=== PATIENT | male | born 1940 | race Caucasian/White ===

== ENCOUNTER 2016-08-14 10:36 | Emergency (ER) | payer OTHER, MEDICARE ==
[~2016-08-14] VITALS: Ht 177.8 cm; Wt 89.8 kg
[~2016-08-14 10:36] MED LIST: VICODIN 300 MG-1 TAB PO
[2016-08-14] MEDS ORDERED: GEMCITABINE HCL1 GM (11:22)
[2016-08-14] MEDS ORDERED: CISPLATIN1 MG/1 ML (11:22)
[2016-08-14] MEDS ORDERED: ATORVASTATIN CA10 M1 PO (11:23)
[2016-08-14] MEDS ORDERED: NORVASC2.5 M1 PO (11:23)
[2016-08-14] MEDS ORDERED: MUCINEX DM ER1 EACH PO (11:23)
--- NOTE | 2016-08-14 11:24 | ED DYSPNEA/ASTHMA COMPLAINT ---
History of Present Illness General Chief Complaint: Dyspnea (COPD, CHF, Other) Stated Complaint: CONGESTION,CP,WHEEZING,SOB X 4 DAYS Source: patient, family, old records Exam Limitations: no limitations Vital Signs & Intake/Output Vital Signs & Intake/Output Vital Signs Date Time Temp Pulse Resp B/P Pulse O2 O2 Flow FiO2 Ox Delivery Rate 08/14 1423 98.9 88 16 150/74 94 Room Air 08/14 1302 93 08/14 1245 99.0 92 18 144/75 93 Room Air 08/14 1205 92 08/14 1049 99.7 98 24 159/83 96 Room Air ED Intake and Output 08/15 0000 08/14 1200 Intake Total 240 Output Total Balance 240 Intake, Oral 240 Patient 198 lb Weight Reconcile Medications Amlodipine (Norvasc) 2.5 MG TABLET 1 TAB PO DAILY HTN (Reported) Atorvastatin Calcium 10 MG TABLET 1 TAB PO DAILY HPL (Reported) Azithromycin (Zithromax) 250 MG TABLET 1 DP PO AD bronchitis 2 the first day followed by 1 for days 2-5 Cisplatin (Unknown Strength) VIAL (Unknown Dose) WEEKLY CHEMO (Reported) Gemcitabine HCl (Unknown Strength) VIAL (Unknown Dose) WEEKLY CHEMO (Reported ) Guaifenesin/Dextromethorphan (Mucinex Dm ER 1,200-60 MG Tab) 1,200 MG-60 MG TBMP.12HR 1 TAB PO BID COUGH (Reported) HYDROCODONE/ACETAMINOPHEN (Vicodin 5-300 MG Tablet) 1 TAB TAB 1 TAB PO Q4-6HR PRN PAIN Methylprednisolone. (Medrol) 4 MG TAB.DS.PK 1 DP PO AD bronchitis 6 on day 1 then reduce by one tablet daily until gone Triage Note: PT TO ED STATING "I THINK I HAVE PNEUMONIA". C/O PRODUCTIVE COUGH AND CHEST PAIN X 4 DAYS. PT IS ON CHEMOTHERAPY CURRENTLY. RA SATS 96%. EKG DONE. TEMP 99.7. Triage Nurses Notes Reviewed? yes Onset: Abrupt Duration: day(s): (4), constant Timing: recent history Severity: moderate Activities at Onset: none Modifying Factors: Improves With: rest. Associated Symptoms: cough HPI: 76-year-old male presents emergency room with history of prostate bladder CA just beginning chemotherapy last week complaining of a productive cough of clear to yellowish sputum associated with intermittent shortness of breath and chest pain with coughing that all began 4 days ago. The patient does not smoke no history of lung disease in the past no history of asthma. He denies fever chills, diaphoresis no abdominal pain nausea vomiting or diarrhea. He has been Using [id number] decongestants without improvement. There are no modifying factors or associated symptoms otherwise. He is due for his next round of chemotherapy tomorrow morning (MONISHA REY) Allergies Coded Allergies: NO KNOWN ALLERGIES (08/14/16) (LANG NEVAREZ,SAGRARIO) Past History Travel History Traveled to [place] past 21 day No Medical History Any Pertinent Medical History? see below for history Renal: MELANIA POUCH Cancer(s): bladder cancer, prostate cancer Surgical History Surgical History: non-contributory Psychosocial History What is your primary language Bengali Tobacco Use: Quit >30 days ago ETOH Use: denies use Illicit Drug Use: denies illicit drug use Family History Hx Contributory? No (MONISHA REY) Review of Systems Review of Systems Constitutional: Reports: see HPI. All Other Systems: Reviewed and Negative Comments Review of systems: See HPI, All other systems negative. Constitutional, no chills no fever, no malaise HEENT: No visual changes no sore throat no congestion, no ear pain Cardiovascular: No chest pain , no palpitation , no orthopnea no ankle swelling Skin, no jaundice no rashes, no change in skin Respiratory: No dyspnea cough sputum no hemoptysis GI: No nausea no vomiting, no diarrhea, : No dysuria Muscle skeletal: No joint pain, no back pain, no neck pain, Neurologic: No numbness no headache Psych: No stress Heme/endocrine: No bruising no bleeding Immunology: No lymphadenopathy (MONISHA REY) Physical Exam Physical Exam General Appearance: well developed/nourished, alert, awake Respiratory: chest non-tender, rhonchi, wheezing Comments: Well-developed well-nourished person in no acute distress HEENT: Normal EENT exam; PERRL, EOMI, HEAD is atraumatic. moist mucous membranes. Pharynx is within normal limits no erythema no exudate Neck: Supple, no lymphadenopathy, normal range of motion Back: Nontender, no CVA tenderness. Full range of motion Cardiovascular: Regular rate and rhythms no murmurs rubs or gallops, normal JVP Respiratory: Chest nontender.There were no bony deformities, no asymmetry. No respiratory distress. Patient speaking in full complete sentences. The bilateral crackles and rhonchi wheezing bilateral lung mc Abdomen: Soft, nontender nondistended, no appreciable organomegaly. Normal bowel sounds. No rebound/guarding, No ascites. Extremity: No edema, full range of motion of extremities Neuro: Alert oriented x3, motor sensory normal, There were no obvious focal neurologic abnormalities. Skin: No appreciable rash on exposed skin, skin is warm and dry. Psych: Mood and affect is normal, memory and judgment is normal. Core Measures ACS in differential dx? Yes Severe Sepsis Present: No Septic Shock Present: No (JENNY HOYOS,MONISHA) Progress Differential Diagnosis: asthma, AMI, bronchitis, costochondritis, CHF, COPD, musculoskeletal pain, pericarditis, pulmonary embolism, pneumonia, pneumothorax, unstable angina Plan of Care: Orders Procedure Date/time Status Add-on Test (ER Only) 08/14 1203 Active LACTIC ACID 08/14 1153 Complete BLOOD CULTURE 08/14 1129 Active TROPONIN LEVEL 08/14 1129 Complete COMPREHENSIVE METABOLIC PANEL 08/14 1129 Complete CBC WITHOUT DIFFERENTIAL 08/14 1129 Complete EKG 08/14 1037 Active Laboratory Tests 08/14/16 1153: Anion Gap 13, Estimated GFR 59 L, BUN/Creatinine Ratio 17.5, Glucose 126 H, Lactic Acid 1.1, Calcium 9.1, Total Bilirubin 1.0, AST 111 H, ALT 81 H, Alkaline Phosphatase 224 H, Troponin I < 0.01, Total Protein 7.2, Albumin 4.0, Globulin 3.2, Albumin/Globulin Ratio 1.3, CBC w Diff NO MAN DIFF REQ, RBC 4.86, MCV 88.0, MCH 30.7, RDW 13.0, MPV 7.3 L, Gran % 81.7 H, Lymphocytes % 10.6 L, Monocytes % 7.0, Eosinophils % 0.3, Basophils % 0.4, Absolute Granulocytes 4.6, Absolute Lymphocytes 0.6 L, Absolute Monocytes 0.4, Absolute Eosinophils 0, Absolute Basophils 0, PUBS MCHC 34.9 Microbiology 08/14 1210 BLOOD: Blood Culture - RECD 08/14 1153 BLOOD: Blood Culture - RECD Labs ordered old records reviewed DuoNeb ordered. Case was discussed with Dr. Hernandez who evaluated the patient and agrees with plan I discussed with the patient and his family at length all of his lab results and x-ray findings. Patient still sounds congested repeat DuoNeb ordered discussed with him that I believe premature discharge would BE medically harmful and the patient should be admitted to the hospital for IV steroids breathing treatments. IV antibiotics which the patient is reluctant against does not want to stay discussed with the harm of leaving prematurely. I spoke with the patient's on-call oncologist Dr. foster covering for dr ro- he advise given the 2 medications the patient is on (cisplatin and gemcitabine) that it is okay and safe to send the patient home with by mouth steroids and azithromycin. Advised outpatient follow-up with Dr. Ro tomorrow as he is scheduled to receive another chemotherapy infusion patient is ambulatory around the emergency room 93% room air feeling well. Patient wants to be discharged he will return at anytime sooner with any concerns. I discussed with the patient at length all of their results, need for close follow up with their primary care physician. This week. I answered all of their questions, they feel comfortable with the plan and follow-up care. I discussed the medications that they will receive with the patient. I gave them signs and symptoms that could indicate an adverse reaction. I have advised them to limit their activities until they can see how they respond to the medication. (JENNY HOYOS,MONISHA) Diagnostic Imaging: Viewed by Me: Radiology Read. Discussed w/RAD: Radiology Read. Radiology Impression: PATIENT: ELIEZER STAHL PRESENT AGE: 76 PATIENT ACCOUNT NO: [id number] : 42 LOCATION: [facility] ORDERING PHYSICIAN: MONISHA HOYOS SERVICE DATE: 08/14/16 EXAM TYPE: RAD - XRY- CHEST XRAY, PA AND LATERAL EXAMINATION: XR CHEST CLINICAL INFORMATION: Cough. Dyspnea. Rule out pneumonia. COMPARISON: CT chest 06/07/2016, chest x-rays of , 02/18/2013. TECHNIQUE: PA and lateral views of the chest were obtained. FINDINGS: The lungs are normally and symmetrically expanded. The costophrenic sulci are not completely included in the field of view. There are bands of linear densities in the lingula likely representing atelectasis. No focal consolidation. No pleural effusions, pulmonary edema or pneumothorax. The cardiomediastinal silhouette is stable and normal. Mild degenerative changes at the bilateral acromioclavicular joints. Multilevel mild degenerative changes are noted in the spine. The visualized upper abdomen is unremarkable. IMPRESSION: The linear bands of opacity in the lingula are felt to represent subsegmental atelectasis. No additional focal airspace opacities. Consider follow up chest x- rays in 4-6 weeks. DICTATED BY: ELISE GILL MD DATE/TIME DICTATED:08/14/161207 STRATEGY PLANNING CONSULTANT:ALEJANDRO DATE/TIME TRANSCRIBED:08/14/161207 CONFIDENTIAL, DO NOT COPY WITHOUT APPROPRIATE AUTHORIZATION. <Electronically signed in Other Vendor System> SIGNED BY: BRIDGET NEVAREZ,ELISE 08/14/16 1236 Initial ED EKG: sinus tach at 100, no acute ST segment changes lad Prior EKG: unchanged (11/2012) Rhythm Strip: normal sinus rhythm (MONISHA REY) Departure Departure Time of Disposition: 1311 Disposition: HOME OR SELF CARE Condition: Stable Clinical Impression Primary Impression: Bronchitis Secondary Impressions: Transaminitis Referrals: NESSA ALVAREZ DO (PCP/Family) Additional Instructions: Follow-up with Dr. Ro tomorrow morning to see if they want to change your appointment for tomorrow. Medrol Dosepak, azithromycin as directed. Return anytime sooner if he develop worsening of her symptoms despite medication shortness of breath fever or chills These prescriptions were sent to her pharmacy Departure Forms: Customer Survey General Discharge Information Prescriptions: Current Visit Scripts Azithromycin (Zithromax) 1 DP PO AD #6 TAB 2 the first day followed by 1 for days 2-5 Methylprednisolone. (Medrol) 1 DP PO AD #1 DP 6 on day 1 then reduce by one tablet daily until gone (MONISHA REY) PA/TIMBER FELLER Co-Sign Statement Statement: ED Attending supervision documentation- [X] I saw and evaluated the patient. I have also reviewed all the pertinent lab results and diagnostic results. I agree with the findings and the plan of care as documented in the PA's/TIMBER FELLER's documentation. [X] I have reviewed the ED Record and agree with the PA's/TIMBER FELLER's documentation. [] Additions or exceptions (if any) to the PAs/TIMBER FELLER's note and plan are summarized below: [] (LANG NEVAREZ,SAGRARIO) Critical Care Note Critical Care Note Critical Care Time: non-applicable (JENNY HOYOSMONISHA)
[2016-08-14 12:11] LABS: ABSOLUTE BASOPHIL COUNT 0 /CUMM (0.0-0.2); ABSOLUTE EOSINOPHIL COUNT 0 /CUMM (0.0-0.7); ABSOLUTE GRANULOCYTE CT 4.6 /CUMM (1.4-6.5); ABSOLUTE LYMPH COUNT 0.6 /CUMM (1.2-3.4); ABSOLUTE MONOCYTE COUNT 0.4 /CUMM (0.10-0.60); BASOPHIL % 0.4 % (0.0-2.0); EOSINOPHIL % 0.3 % (0-5); GRANULOCYTE % 81.7 % (42.2-75.2); HEMATOCRIT 42.8 % (42-52); MEAN CORPUSCULAR HGB 30.7 PG (27.0-31.0); MEAN CORPUSCULAR HGB CONC 34.9 G/DL (33.0-37.0); MEAN PLATELET VOLUME 7.3 FL (7.4-10.4); PLATELET COUNT 181 /CUMM (130-400); RED BLOOD CELL CT 4.86 /CUMM (4.70-6.10); WHITE BLOOD CELL COUNT 5.6 /CUMM (4.8-10.8)
--- NOTE | 2016-08-14 12:36 | RADIOLOGY REPORT ---
EXAMINATION: XR CHEST CLINICAL INFORMATION: Cough. Dyspnea. Rule out pneumonia. COMPARISON: CT chest 06/07/2016, chest x-rays of 11/11/2013, 02/18/2013. TECHNIQUE: PA and lateral views of the chest were obtained. FINDINGS: The lungs are normally and symmetrically expanded. The costophrenic sulci are not completely included in the field of view. There are bands of linear densities in the lingula likely representing atelectasis. No focal consolidation. No pleural effusions, pulmonary edema or pneumothorax. The cardiomediastinal silhouette is stable and normal. Mild degenerative changes at the bilateral acromioclavicular joints. Multilevel mild degenerative changes are noted in the spine. The visualized upper abdomen is unremarkable. IMPRESSION: The linear bands of opacity in the lingula are felt to represent subsegmental atelectasis. No additional focal airspace opacities. Consider follow up chest x-rays in 4-6 weeks.
[2016-08-14] MEDS ORDERED: MEDROL4 M2 PO (13:13)
[2016-08-14] MEDS ORDERED: ZITHROMAX250 M2 PO (13:13)
[2016-08-14 14:23] VITALS: BP 150/74
== END 2016-08-14 14:26 ==
LOC: ERH 10:36
PROVIDERS: Physician Assistant Medical
DX: J40 Bronchitis, not specified as acute or chronic (principal); R74.0 Nonspecific elevation of levels of transaminase and lactic acid dehydrogenase [LDH]; Z87.891 Personal history of nicotine dependence; R07.9 Chest pain, unspecified
CPT/HCPCS: 1263; 87040; 93005; 93010; 96374; 96375; J2930

== ENCOUNTER 2016-10-12 05:28 | Emergency (ER) | payer OTHER, MEDICARE ==
[~2016-10-12] VITALS: Ht 175.3 cm; Wt 77.6 kg
[~2016-10-12 05:28] MED LIST changes: +ATORVASTATIN CA10 M1 PO; +CISPLATIN1 MG/1 ML; +GEMCITABINE HCL1 GM; +MEDROL4 M2 PO; +MUCINEX DM ER1 EACH PO; +NORVASC2.5 M1 PO; +ZITHROMAX250 M2 PO
--- NOTE | 2016-10-12 05:46 | ED GI/GU/ABDOMINAL COMPLAINT ---
History of Present Illness General Chief Complaint: Male Genitourinary Problems Stated Complaint: NEEDS TO BE CATHETERIZED Source: EMS, Exam Limitations: clinical condition Vital Signs & Intake/Output Vital Signs & Intake/Output ED Intake and Output 10/13 0000 10/12 1200 Intake Total Output Total 300 Balance -300 Output, Urine 300 Patient 171 lb Weight Allergies Coded Allergies: NO KNOWN ALLERGIES (08/14/16) Reconcile Medications Amlodipine (Norvasc) 2.5 MG TABLET 1 TAB PO DAILY HTN (Reported) Atorvastatin Calcium 10 MG TABLET 1 TAB PO DAILY HPL (Reported) Ciprofloxacin HCl (Cipro) 500 MG TABLET 1 TAB PO BID UTI Oxycodone HCl 5 MG TABLET 10 MG PO Q4P PRN PAIN (Reported) Prednisone 20 MG TABLET 30 MG PO TID STEROID (Reported) Prochlorperazine Maleate 10 MG TABLET 10 MG PO Q6-PRN PRN NAUSEA (Reported) Sennosides (Senokot) 8.6 MG TABLET 1 TAB PO DAILY STOOL SOFTENER (Reported) Tramadol HCl 50 MG TABLET 50 MG PO Q6-PRN PRN PAIN (Reported) Triage Note: PT BIBA FROM HOME C/O URINARY RETENTION. PER PT PT HAS MELANIA POUCH DUE TO BLADDER CANCER AND IS CATHETERIZED EVERY 5-6 HOURS. REPORTS NOT BEING ABLE TO CATHETERIZE HIM AT 2 AM WHEN HE WAS DUE. REPORTS PT LAST URINE OUTPUT AT 8 PM LAST. PT NOW C/O OF ABDOMINAL PAIN DUE TO URINARY RETENTION. BELLY SOFT AND DISTENDED. Triage Nurses Notes Reviewed? 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 According to the the pouch is catheterized every 5-6 hours. Tonight she was unable to pass the catheter and he was too weak to stand so EMS was called. No fever or chills. No nausea/vomiting. Urine has been dark secondary to elevated LFT's. Patient follow up with Dr. Claire in [place] for oncology. Patient reports some abdominal pain secondary to distention and urinary retention. Past History Travel History Traveled to [place] past 21 day No Medical History Any Pertinent Medical History? see below for history Renal: MELANIA POUCH Cancer(s): bladder cancer, prostate cancer Surgical History Surgical History: non-contributory Psychosocial History What is your primary language Mauritian Family History Hx Contributory? No Review of Systems Review of Systems Constitutional: Reports: weakness. Denies: chills, fever. EENTM: Reports: no symptoms. Respiratory: Denies: cough, sputum production. Cardiovascular: Denies: chest pain, palpitations. GI: Reports: abdominal pain, bloating. Denies: nausea. Genitourinary: Reports: see HPI (RETENTION), pain. Musculoskeletal: Reports: no symptoms. Skin: Reports: no symptoms. Neurological/Psychological: Reports: no symptoms. Hematologic/Endocrine: Denies: bruising, bleeding, polyuria, polydipsia. Immunologic/Allergic: Denies: splenectomy. All Other Systems: Reviewed and Negative Physical Exam Physical Exam General Appearance: alert, awake, moderate distress, thin Head: atraumatic, normal appearance Eyes: Bilateral: PERRL, other (ICTERIC). Respiratory: normal breath sounds, chest non-tender Cardiovascular: tachycardia Peripheral Pulses: 2+ radial (R), 2+ radial (L) Gastrointestinal: soft, distention, tenderness, RLQ MELANIA POUCH Male Genitals: normal genitalia, URETHRAL TIP CLOSED Extremities: normal range of motion Neurologic/Psych: no motor/sensory deficits, awake, alert, oriented x 3 Skin: jaundice Core Measures ACS in differential dx? No Severe Sepsis Present: No Septic Shock Present: No Progress Differential Diagnosis: urinary retention, UTI/pyelo Plan of Care: Orders Procedure Date/time Status Straight Cath 10/12 0544 Active CULTURE,URINE 10/12 0544 Active URINALYSIS 10/12 0544 Complete Current Medications Sig/Marisela Start time Last Medication Dose Stop Time Status Admin Ciprofloxacin 500 MG ONCE ONE 10/12 0645 UNVr (Cipro) 10/12 0646 Laboratory Tests 10/12/16 0600: Urine Color YEL, Urine Clarity CLDY H, Urine pH 7.0, Ur Specific [place] 1.015, Urine Protein 100 H, Urine Ketones NEG, Urine Nitrite NEG, Urine Bilirubin POS@ ICTO H, Urine Urobilinogen 4.0 H, Ur Leukocyte Esterase MOD H, Ur Microscopic SEDIMENT EXAMINED, Urine RBC 3-5, Urine WBC 25-50 H, Ur Epithelial Cells FEW, Urine Bacteria PACKD H, Granular Casts 1-3 H, Urine Mucus MOD H, Urine Hemoglobin SMALL H, Urine Glucose NEG Microbiology 10/12 0600 URINE ROUT: Urine Culture - RECD 320 cc icteric urine removed with straight cath. UA/UCULTURE SENT. VISIBLE SEDIMENT IN URINE. (LANG NEVAREZ,SAGRARIO) Initial ED EKG: none Departure Departure Time of Disposition: 633 Disposition: HOME OR SELF CARE Condition: Stable Clinical Impression Primary Impression: Urinary retention Referrals: NESSA ALVAREZ DO (PCP/Family) Additional Instructions: Take the cipro as directed and follow up with your doctor in the office. A urine culture is pending in the lab. Return to the ER for any changing or worsening symptoms. Departure Forms: Customer Survey General Discharge Information Prescriptions: Current Visit Scripts Ciprofloxacin HCl (Cipro) 1 TAB PO BID #19 TAB
[2016-10-12] MEDS ORDERED: OXYCODONE HCL5 M1 PO (05:47)
[2016-10-12] MEDS ORDERED: PROCHLORPERAZIN10 MG PO ×2 (05:48→12:11)
[2016-10-12] MEDS ORDERED: PREDNISONE20 M1 PO (05:48)
[2016-10-12] MEDS ORDERED: CIPRO500 M1 PO (06:35)
[2016-10-12 07:13] VITALS: BP 94/61
[2016-10-12] MEDS ORDERED: TRAMADOL HCL50 M1 PO (12:10)
[2016-10-12] MEDS ORDERED: SENOKOT8.6 M2 PO (12:12)
== END 2016-10-12 07:45 ==
LOC: ERH 05:28
DX: R33.9 Retention of urine, unspecified (principal)
CPT/HCPCS: 81001; 87086

== ENCOUNTER 2016-10-12 10:23 | Inpatient (IN) | payer OTHER, MEDICARE ==
[~2016-10-12] VITALS: Ht 175.3 cm; Wt 77.6 kg
[~2016-10-12 10:23] MED LIST changes: +CIPRO500 M1 PO; +OXYCODONE HCL5 M1 PO; +PREDNISONE20 M1 PO; +PROCHLORPERAZIN10 MG PO
--- NOTE | 2016-10-12 10:46 | NUR ---
76 Y/O FEMALE BIBA FROM HOME; C/O GENERAL WEAKNESS AND SOB SINCE LAST NIGHT. WAS EVAL'D OVERNIGHT IN ED AND D/YUNG THIS MORNING, DX UTI. SCRIPT FOR CIPRO GIVEN BY STATES SHE HAS NOT FILLED SCRIPT YET. PER EMS, PT WAS FOUND WITH B/P 70'S SYSTOLIC. IV EST AND NORMAL SALINE INFUSING ON ARRIVAL WITH B/P 82/55. PT ALERT JAUNDICE. C/O GENERAL FATIGUE. 2ND IV EST BY ALEXIS BAE. 2ND LITER INFUSING. AWAITING EVAL WITH FAMILY PRESENT
--- NOTE | 2016-10-12 10:46 | NUR ---
DR SANDS INTO EVAL
--- NOTE | 2016-10-12 10:49 | NUR ---
ORDERS PLACED, OK'D BY DR SANDS. DR SANDS AT BEDSIDE FOR EVAL
[2016-10-12 10:55] LABS: HEMATOCRIT 36.4 % (42-52); MEAN CORPUSCULAR HGB 29.1 PG (27.0-31.0); MEAN CORPUSCULAR HGB CONC 31.5 G/DL (33.0-37.0); MEAN CORPUSCULAR VOLUME 92.6 FL (80.0-94.0); MEAN PLATELET VOLUME 9.5 FL (7.4-10.4); PLATELET COUNT 296 /CUMM (130-400); RBC DISTRIBUTION WIDTH 16.7 % (11.5-14.5); RED BLOOD CELL CT 3.93 /CUMM (4.70-6.10); WHITE BLOOD CELL COUNT 29.9 /CUMM (4.8-10.8)
--- NOTE | 2016-10-12 10:55 | ED AMS/SEIZURE/WEAK/DIZZY ---
History of Present Illness General Chief Complaint: General Adult Stated Complaint: WEAKNESS Source: patient, family () Exam Limitations: poor historian Vital Signs & Intake/Output Vital Signs & Intake/Output ED Intake and Output 10/14 0000 10/13 1200 Intake Total 1320 2047 Output Total 600 250 Balance 720 1797 Intake, IV 1320 7 Intake, Oral 0 0 Number 0 Bowel Movements Output, Urine 600 250 Patient 171 lb Weight Allergies Coded Allergies: NO KNOWN ALLERGIES (08/14/16) Reconcile Medications Amlodipine (Norvasc) 2.5 MG TABLET 1 TAB PO DAILY HTN (Reported) Atorvastatin Calcium 10 MG TABLET 1 TAB PO DAILY HPL (Reported) Ciprofloxacin HCl (Cipro) 500 MG TABLET 1 TAB PO BID UTI Oxycodone HCl 5 MG TABLET 10 MG PO Q4P PRN PAIN (Reported) Prednisone 20 MG TABLET 30 MG PO TID STEROID (Reported) Prochlorperazine Maleate 10 MG TABLET 10 MG PO Q6-PRN PRN NAUSEA (Reported) Sennosides (Senokot) 8.6 MG TABLET 1 TAB PO DAILY STOOL SOFTENER (Reported) Tramadol HCl 50 MG TABLET 50 MG PO Q6-PRN PRN PAIN (Reported) Triage Note: 76 Y/O FEMALE BIBA FROM HOME; C/O GENERAL WEAKNESS AND SOB SINCE LAST NIGHT. WAS EVAL'D OVERNIGHT IN ED AND D/YUNG THIS MORNING, DX UTI. SCRIPT FOR CIPRO GIVEN BY STATES SHE HAS NOT FILLED SCRIPT YET. PER EMS, PT WAS FOUND WITH B/P 70'S SYSTOLIC. IV EST AND NORMAL SALINE INFUSING ON ARRIVAL WITH B/P 82/55. PT ALERT JAUNDICE. C/O GENERAL FATIGUE. 2ND IV EST BY ALEXIS BAE. 2ND LITER INFUSING. AWAITING EVAL WITH FAMILY PRESENT Triage Nurses Notes Reviewed? yes HPI: Patient presents for evaluation of worsening generalized weakness that began 3-4 days ago. Patient was evaluated in the emergency earlier today and was diagnosed began treatment for a urinary tract infection. Since then he has become increasingly weak and unsteady on his feet. Patient himself is a poor historian and is unable to provide substantial history. History obtained via his . She feels the symptoms are becoming worse and severe and that he is increasingly unable to manage his ADLs. Past History Travel History Traveled to [place] past 21 day No Medical History Any Pertinent Medical History? see below for history Neurological: NONE EENT: NONE Cardiovascular: hypertension, HIGH CHOLESTEROL Respiratory: NONE Gastrointestinal: NONE Hepatic: NONE Renal: MELANIA POUCH Musculoskeletal: NONE Psychiatric: NONE Endocrine: NONE Blood Disorders: NONE Cancer(s): bladder cancer, prostate cancer, LIVER CANCER DENTAL OFFICE ASSISTANT/Reproductive: NONE Surgical History Surgical History: non-contributory Psychosocial History What is your primary language Georgian Tobacco Use: Quit >30 days ago Family History Hx Contributory? No Review of Systems Review of Systems Constitutional: Reports: weakness. EENTM: Reports: no symptoms. Respiratory: Reports: no symptoms. Cardiovascular: Reports: no symptoms. GI: Reports: no symptoms. Genitourinary: Reports: no symptoms. Musculoskeletal: Reports: no symptoms. Skin: Reports: no symptoms. Neurological/Psychological: Reports: no symptoms. Hematologic/Endocrine: Reports: no symptoms. Immunologic/Allergic: Reports: no symptoms. All Other Systems: Reviewed and Negative Physical Exam Physical Exam General Appearance: see below Comments: Gen.: Well-nourished, well-developed, no acute respiratory distress. Head: Normocephalic, atraumatic. Eyes: Normal inspection bilaterally Ears: Normal inspection bilaterally Nose: Normal inspection Throat/mouth : Moist mucosa Neck: Supple, full range of motion, no goiter Heart: Rapid but otherwise Regular rate and rhythm, no murmurs rubs or gallops Lungs: Clear to auscultation bilaterally with normal air entry Chest: Nontender Back: Normal range of motion Abdomen: Soft, right upper quadrant abdominal tenderness consistent with patient 's history of liver cancer, mildly distended and tympanitic in the upper quadrants, normal bowel sounds Extremities: Normal range of motion grossly, equal radial pulses, no cyanosis clubbing or edema Neurologic: Cranial nerves grossly intact, speech is clear Skin: warm and dry Psychiatric: Calm, cooperative, no apparent delusions or hallucinations Core Measures ACS in differential dx? No CVA/TIA Diagnosis: No Severe Sepsis Present: Yes Septic Shock Present: Yes Progress Differential Diagnosis: urosepsis Plan of Care: Orders Procedure Date/time Status Patient Data 10/12 1547 Active LACTIC ACID 10/12 1358 Complete Admit to inpatient 10/[address] ABD & PELVIS W/O IV CONTRAS 10/12 1221 Active LACTIC ACID 10/12 1058 Complete CULTURE,URINE 10/12 1041 Active BLOOD CULTURE 10/12 1041 Active URINALYSIS 10/12 1041 Complete COMPREHENSIVE METABOLIC PANEL 10/12 1041 Complete CBC WITHOUT DIFFERENTIAL 10/12 1041 Complete Intake & Output 10/12 1034 Active Laboratory Tests 10/12/16 1523: Lactic Acid 4.1 H 10/12/16 1302: Urinalysis LIGHT H, Urine Color RESHMA, Urine Clarity CLDY H, Urine pH 6.5, Ur Specific Dyer 1.020, Urine Protein 100 H, Urine Ketones NEG, Urine Nitrite POS H, Urine Bilirubin POS@ICTO H, Urine Urobilinogen 4.0 H, Ur Leukocyte Esterase MOD H, Ur Microscopic SEDIMENT EXAMINED, Urine RBC 15-25 H, Urine WBC 50-75 H, Ur Epithelial Cells RARE, Urine Crystals 1+ CA OX H, Urine Bacteria PACKD H, Hyaline Casts RARE H, Granular Casts RARE H, Urine Mucus PACKD H, Micro UA Comment , Urine Hemoglobin MOD H, Urine Glucose NEG 10/12/16 1044: Lactic Acid 6.8 H 10/12/16 1044: Anion Gap 22 H, Estimated GFR 16 L, BUN/Creatinine Ratio 31.3 H, Glucose 139 H, Calcium 9.5, Total Bilirubin 7.5 H, AST 1115 H, ALT 587 H, Alkaline Phosphatase 2282 H, Total Protein 5.9 L, Albumin 2.5 L, Globulin 3.4, Albumin /Globulin Ratio 0.7 L, CBC w Diff MAN DIFF ORDERED, RBC 3.93 L, MCV 92.6, MCH 29.1, RDW 16.7 H, MPV 9.5, Segmented Neutrophils 88 H, Band Neutrophils 6 H, Monocytes 5, Myelocytes 1 H, Nucleated RBCs 3 H, Platelet Estimate ADEQUATE, Hypochromic-Microcytic 1+, Anisocytosis 1+, PUBS MCHC 31.5 L Microbiology 10/12 1302 URINE ROUT: Urine Culture - RECD 10/12 1125 BLOOD: Blood Culture - RECD 10/12 1044 BLOOD: Blood Culture - RECD Diagnostic Imaging: Discussed w/RAD: Radiology Read. CXR Impression: PATIENT: ELIEZER STAHL PRESENT AGE: 76 PATIENT ACCOUNT NO: [id number] : 42 LOCATION: [facility] ORDERING PHYSICIAN: MIKALA SANDS MD SERVICE DATE: 10/12/16-1040 EXAM TYPE: RAD - XRY-PORTABLE CHEST XRAY EXAMINATION: XR PORTABLE CHEST CLINICAL INFORMATION: Fever COMPARISON : 08/14/2016 TECHNIQUE: Portable AP view of the chest was obtained. FINDINGS: Lung volumes are low. The previously noted platelike opacity in the left lower lung has resolved. No consolidation, pulmonary edema, pleural effusion, or pneumothorax is evident. There are degenerative changes of the spine without evidence of acute osseous abnormality. IMPRESSION: Low lung volumes without acute abnormality. DICTATED BY: ADRIANNA NULL MD DATE/TIME DICTATED:10/12/161130 BICYCLE II ASSEMBLER:ALEJANDRO DATE/TIME TRANSCRIBED:10/12/161130 CONFIDENTIAL, DO NOT COPY WITHOUT APPROPRIATE AUTHORIZATION. <Electronically signed in Other Vendor System> SIGNED BY: ADRIANNA NULL MD 10/12/161134 Initial ED EKG: SINUS TACHY WITH RATE OF 100, LVH Comments: 10/12/2016 12:21:21 PM patient's case discussed with Dr. Saenz who is covering for Dr. Perea. Patient to be admitted to [facility] unless blood pressure fails to respond to IV fluid boluses. 10/12/2016 1:19:30 PM patient's blood pressure remains low. I feel that he would be better served in the intensive care unit initially. I'm awaiting a callback from Dr. Slade. 10/12/2016 3:38:55 PM patient's case discussed with Dr. Slade. He was given additional fluids with normalization of his blood pressure. His case was then discussed with Dr. Yuen for possible general medical admission. Dr. Perea however felt uncomfortable taking the patient on [facility]. I have discussed the case with Dr. Slade once again and the patient has been accepted to her service to the ICU. 10/12/2016 4:25:13 PM with reevaluation the patient's peripheral pulses are easily palpable, his color looks good, capillary refill of fingers is less than 2 seconds. He remains awake alert and conversant. His blood pressure remains normal. Departure Departure Disposition: STILL A PATIENT Condition: Stable Clinical Impression Primary Impression: Septic shock Secondary Impressions: Acute renal failure Qualifiers: Acute renal failure type: unspecified Qualified Code: N17.9 - Acute kidney failure, unspecified Volume depletion Referrals: NESSA ALVAREZ DO (PCP/Family) Departure Forms: Customer Survey General Discharge Information Admission Note Spoke With: ENIO SAENZ MD Documentation of Exam: Documentation of any treatments & extenuating circumstances including Concerns Regarding Discharge (functional status, medication knowledge or non-compliance, living conditions, etc.) that warrant an admission rather than observation: Patient's clinical presentation is consistent with septic shock given his recent diagnosis of urinary tract infection. He is now at extremely high risk of overwhelming sepsis, septic shock and . His advanced age, history of liver cancer with bone metastases and current treatment with immunosuppressive therapy increases the risk substantially. He cannot be treated safely as an outpatient requires hospitalization and aggressive management with IV fluid boluses and intravenous antibiotics. His vital signs should be checked frequently along with serial physical examinations. Blood and urine culture results should be followed and treatment adjusted accordingly. Patient's prognosis at this point is guarded and I feel he will require multiple day hospitalization. Critical Care Note Critical Care Note Critical Care Time: 75-104 min
--- NOTE | 2016-10-12 11:32 | NUR ---
CRITICAL TEST RESULTS [id number] ELIEZER STAHL TESTS AND RESULTS: BUN 119, SODIUM 156 Results received and read back by: SABINA COLLINS Results received date and time: 10/12/16 1132 The following provider was notified of the results, and read the results back: DR SANDS Notified date and time: 10/12/16 at 1132
--- NOTE | 2016-10-12 11:35 | RADIOLOGY REPORT ---
EXAMINATION: XR PORTABLE CHEST CLINICAL INFORMATION: Fever COMPARISON: 08/14/2016 TECHNIQUE: Portable AP view of the chest was obtained. FINDINGS: Lung volumes are low. The previously noted platelike opacity in the left lower lung has resolved. No consolidation, pulmonary edema, pleural effusion, or pneumothorax is evident. There are degenerative changes of the spine without evidence of acute osseous abnormality. IMPRESSION: Low lung volumes without acute abnormality.
--- NOTE | 2016-10-12 11:47 | NUR ---
PTS BP 74/42 AT THIS TIME. THIRD LITER INFUSING AT THIS TIME. AWARE
--- NOTE | 2016-10-12 11:56 | NUR ---
IV ROCEPIHN INFUSING PER ORDER AT THIS TIME. BP 87/50 AT THIS TIME. SECOND AND THIRD LITERS INFUISNG PER ORDER AT THIS TIME.
[2016-10-12] MEDS ORDERED: TRAMADOL HCL50 M1 PO (12:10)
[2016-10-12] MEDS ORDERED: PROCHLORPERAZIN10 MG PO (12:11)
[2016-10-12] MEDS ORDERED: SENOKOT8.6 M2 PO (12:12)
--- NOTE | 2016-10-12 12:26 | NUR ---
TAKEN TO CT SCAN VIA STRETCHER
--- NOTE | 2016-10-12 13:00 | NUR ---
TALKED TO LAB ABOUT ORDER FOR LACTIC ACID, LACTIC WAS DRAWN THIS AM WITH OTHER BLOOD WORK AND SENT BUT NEVER RESULTED DUE TO ORDER NOT BEING ADDED ON. LAB WILL RUN LACTIC ACID NOW.
--- NOTE | 2016-10-12 13:07 | NUR ---
PT STRIAGHT CATH'D VIA MELANIA POUCH AT THIS TIME. OUTPUT 100CC DARK URINE WITH SEDIMENT NOTED. SPECIMEN SENT TO LAB
--- NOTE | 2016-10-12 13:11 | NUR ---
MD AT BEDSIDE TO DISCUSS RESULTS AND PLAN OF CARE
--- NOTE | 2016-10-12 13:11 | NUR ---
PT PROVIDED WITH ORANGE JUICE PER REQUEST AT THIS TIME, PER MD IT WAS OK
--- NOTE | 2016-10-12 14:23 | NUR ---
Emergency Dept UC Admit Note: To be admitted to [facility] by DR MESSER with UROSEPSIS as the diagnosis, to 104-01 location. Nursing Service Mechanic and admitting notified 10/12/16 at 1405
--- NOTE | 2016-10-12 14:52 | NUR ---
PTS BP 100/56. PT REQUESTING PAIN MEDICATION AT THIS TIME. AWARE.
--- NOTE | 2016-10-12 15:00 | History & Physical ---
General Information and HPI Allergies/Medications Allergies: Coded Allergies: NO KNOWN ALLERGIES (08/14/16) Home Med list Amlodipine (Norvasc) 2.5 MG TABLET 1 TAB PO DAILY HTN (Reported) Atorvastatin Calcium 10 MG TABLET 1 TAB PO DAILY HPL (Reported) Ciprofloxacin HCl (Cipro) 500 MG TABLET 1 TAB PO BID UTI Oxycodone HCl 5 MG TABLET 10 MG PO Q4P PRN PAIN (Reported) Prednisone 20 MG TABLET 30 MG PO TID STEROID (Reported) Prochlorperazine Maleate 10 MG TABLET 10 MG PO Q6-PRN PRN NAUSEA (Reported) Sennosides (Senokot) 8.6 MG TABLET 1 TAB PO DAILY STOOL SOFTENER (Reported) Tramadol HCl 50 MG TABLET 50 MG PO Q6-PRN PRN PAIN (Reported) Past History Travel History Traveled to [place] past 21 day No Medical History Neurological: NONE EENT: NONE Cardiovascular: hypertension, HIGH CHOLESTEROL Respiratory: NONE Gastrointestinal: NONE Hepatic: NONE Renal: MELANIA POUCH Musculoskeletal: NONE Psychiatric: NONE Endocrine: NONE Blood Disorders: NONE Cancer(s): bladder cancer, prostate cancer, LIVER CANCER APPLICATION CONSULTANT/Reproductive: NONE Surgical History Surgical History: non-contributory Core Measures/Miscellaneous Cerebrovascular Accident CVA/TIA Diagnosis: No Severe Sepsis Severe Sepsis Present: Yes Septic Shock Septic Shock Present: Yes
--- NOTE | 2016-10-12 15:19 | NUR ---
CRITICAL TEST RESULTS [id number] ELIEZER STAHL TESTS AND RESULTS: LACTIC 6.8 Results received and read back by: NGHIA AGUILERA Results received date and time: 10/12/16 1519 The following provider was notified of the results, and read the results back: DR SANDS Notified date and time: 10/12/16 at 1520
--- NOTE | 2016-10-12 15:55 | NUR ---
CRITICAL TEST RESULTS [id number] ELIEZER STAHL TESTS AND RESULTS: LACTIC ACID 4.1 Results received and read back by: SABINA COLLINS Results received date and time: 10/12/16 1555 The following provider was notified of the results, and read the results back: DR SANDS Notified date and time: 10/12/16 at 1559
--- NOTE | 2016-10-12 16:02 | History & Physical ---
See Addendum [facility] 10[facility]12[facility]16 1602: General Information and HPI MD Statement: I have seen and personally examined MARIBETHDONALD and documented this H&P. The patient is a 76 year old M who presented with a patient stated chief complaint of weakness Source of Information: patient History of Present Illness: This is a 76-year-old male with past medical history of hypertension, hyperlipidemia, urothelial bladder cancer stage IV status post bladder resection and placement of [place] pouch, currently under palliative radiotherapy, prostate cancer, liver cancer presents with weakness and abdominal pain. Patient is a poor historian, he states that he has been having abdominal pain for a while now but recently noticed increase in intensity of the pain, he has been feeling weak, has been having low appetite not eating or drinking well. Denies any fever or chills, denies any changes in amount or color of urine, no hematuria, on a daily basis he intermittently catheterizing himself every 4 hours which . Denies any nausea, vomiting, chest pain, palpitation, changes in bowel movements, any recent sick contacts, any recent travels. He is currently receiving palliative radiotherapy for his stage IV bladder cancer. Allergies/Medications Allergies: Coded Allergies: NO KNOWN ALLERGIES (08/14/16) Home Med list Amlodipine (Norvasc) 2.5 MG TABLET 1 TAB PO DAILY HTN (Reported) Atorvastatin Calcium 10 MG TABLET 1 TAB PO DAILY HPL (Reported) Ciprofloxacin HCl (Cipro) 500 MG TABLET 1 TAB PO BID UTI Oxycodone HCl 5 MG TABLET 10 MG PO Q4P PRN PAIN (Reported) Prednisone 20 MG TABLET 30 MG PO TID STEROID (Reported) Prochlorperazine Maleate 10 MG TABLET 10 MG PO Q6-PRN PRN NAUSEA (Reported) Sennosides (Senokot) 8.6 MG TABLET 1 TAB PO DAILY STOOL SOFTENER (Reported) Tramadol HCl 50 MG TABLET 50 MG PO Q6-PRN PRN PAIN (Reported) Compliance With Home Meds: UNKNOWN Past History Travel History Traveled to [place] past 21 day No Medical History Neurological: NONE EENT: NONE Cardiovascular: hypertension, HIGH CHOLESTEROL Respiratory: NONE Gastrointestinal: NONE Hepatic: NONE Renal: MELANIA POUCH Musculoskeletal: NONE Psychiatric: NONE Endocrine: NONE Blood Disorders: NONE Cancer(s): bladder cancer, prostate cancer, 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 Home Who Do You Live With? spouse Primary Language: Citizen Of [place] Smoking Status: Current Everyday Smoker ETOH Use: denies use Illicit Drug Use: denies illicit drug use Functional Ability ADLs Needs Assist: dressing, eating, toileting, bathing. IADLs Needs Assist: shopping, housework, finances, food prep, telephone, transportation, medication admin. Review of Systems Review of Systems Constitutional: Reports: see HPI. Exam & Diagnostic Data Last 24 Hrs of Vital Signs/I&O Vital Signs Date Time Temp Pulse Resp B/P Pulse O2 O2 Flow FiO2 Ox Delivery Rate 10/12 1711 97.2 103 18 103/55 95 Room Air 10/12 1707 97.0 100 20 117/59 10/12 1612 98.6 101 18 112/62 95 Room Air 10/12 1452 98.6 101 18 100/56 98 Room Air 10/12 1324 103 20 100/56 96 Room Air 10/12 1217 92 18 90/55 94 Room Air 10/12 1159 98.8 106 18 87/50 95 Room Air 10/12 1149 110 22 74/42 93 10/12 1117 95 18 95/49 95 Room Air 10/12 1038 97.3 114 18 82/55 94 Room Air 10/12 1030 94 Room Air Intake & Output 10/12 1600 10/12 0800 10/12 0000 Intake Total 200 Output Total Balance 200 Intake, IV 200 Patient 76.657 kg Weight Physical Exam General Appearance Alert, No Acute Distress Cardiovascular Regular Rate, Normal S1, Normal S2, No Murmurs Lungs Normal Air Movement, left lower lobe coarse breath sounds Abdomen Normal Bowel Sounds, distended, tender in RLQ Extremities No Clubbing, No Cyanosis, No Edema Last 24 Hrs of Labs/[place]: Laboratory Tests 10/12/16 1706: Anion Gap 19 H, Estimated GFR 18 L, Glucose 166 H, Lactic Acid 4.3 H, Calcium 8.7, Phosphorus 6.3 H, Magnesium 2.9 H, Total Bilirubin 6.9 H, AST 1382 H, ALT 602 H, Albumin 2.2 L 10/12/16 1523: Lactic Acid 4.1 H 10/12/16 1302: Urinalysis LIGHT H, Urine Color RESHMA, Urine Clarity CLDY H, Urine pH 6.5, Ur Specific [place] 1.020, Urine Protein 100 H, Urine Ketones NEG, Urine Nitrite POS H, Urine Bilirubin POS@ICTO H, Urine Urobilinogen 4.0 H, Ur Leukocyte Esterase MOD H, Ur Microscopic SEDIMENT EXAMINED, Urine RBC 15-25 H, Urine WBC 50-75 H, Ur Epithelial Cells RARE, Urine Crystals 1+ CA OX H, Urine Bacteria PACKD H, Hyaline Casts RARE H, Granular Casts RARE H, Urine Mucus PACKD H, Micro UA Comment , Urine Hemoglobin MOD H, Urine Glucose NEG 10/12/16 1044: Lactic Acid 6.8 H 10/12/16 1044: Anion Gap 22 H, Estimated GFR 16 L, BUN/Creatinine Ratio 31.3 H, Glucose 139 H, Calcium 9.5, Total Bilirubin 7.5 H, AST 1115 H, ALT 587 H, Alkaline Phosphatase 2282 H, Total Protein 5.9 L, Albumin 2.5 L, Globulin 3.4, Albumin /Globulin Ratio 0.7 L, CBC w Diff MAN DIFF ORDERED, RBC 3.93 L, MCV 92.6, MCH 29.1, RDW 16.7 H, MPV 9.5, Segmented Neutrophils 88 H, Band Neutrophils 6 H, Monocytes 5, Myelocytes 1 H, Nucleated RBCs 3 H, Platelet Estimate ADEQUATE, Hypochromic-Microcytic 1+, Anisocytosis 1+, PUBS MCHC 31.5 L Microbiology 10/12 1835 UPPER RESP: Surveillance Culture - ORD 10/12 1835 GI: Surveillance Culture - ORD 10/12 1302 URINE ROUT: Urine Culture - RECD 10/12 1125 BLOOD: Blood Culture - RECD 10/12 1044 BLOOD: Blood Culture - RECD Assessment/Plan Assessment: This is a 76-year-old male with past medical history of hypertension, hyperlipidemia, urothelial bladder cancer stage IV status post bladder resection and placement of [place] pouch, currently under palliative radiotherapy, prostate cancer, liver cancer presents with weakness and abdominal pain. Vitals upon presentation temperature 97.3, pulse 114, blood pressure 82/55, pulse ox 94 on room air Pertinent labs wBC 29.9 , H&H 11.5 and 36.4, platelets 296, sodium 156, potassium 5.9, creatinine 2.8, BUN 1119, total bilirubin 7.5, AST 1115 home ALT 587, alkaline phosphatase 2282, lactic acid 6.8, urinalysis leukoesterase positive and nitrate positive, WBC 50-75, Abdominopelvic CT showed: IMPRESSION: Multiple well-defined hypodense liver lesions suggestive of metastatic disease with mild enlargement. On the previous exam, there was diffuse hepatic steatosis which appears unchanged. The lesions were not seen on old study. Status post cystectomy with diverting ureterostomy into an ileal conduit extending to the right lower quadrant as ileostomy. No hydronephrosis seen in the kidneys. Bilateral renal lesions and moderate bilateral perinephric stranding is stable. Small bilateral pulmonary nodules. The left inferior major fissure nodule is new. Right lower lobe 4 mm nodule has grown to 7 mm nodule size. Recommend CT chest correlation. We'll admit the patient to ICU and monitor for the following conditions. Sepsis likely urological in origin: Insetting of fever, high white count, hypotension. IV hydration with lactated Ringer's at 150 mL per hour. Vitron lactic acid initial 6.8>> 4.1 Patient started on Ceftriaxone, will follow blood and urine cultures We'll monitor repeat labs Abdominal pain/transaminitis: AST 1115 home ALT 587, alkaline phosphatase 2282 upon presentation, patient states that the abdominal pain has been going on for some time now, he is currently getting palliative radiation for stage IV bladder cancer which has metastasis as mentioned in the CT scan report above. Acute kidney injury: Creatinine normal upon presentation to 3.8 from baseline of 1.4-3 days ago, likely secondary to dehydration, CT scan has ruled out any obstructive uropathy or abscess. Nephrology has been consulted follow-up recommendations. Hypernatremia: Sodium level on presentation 156, likely secondary to dehydration. Patient received normal saline in ER, ICU bundle has been repeated the follow-up. Hyperkalemia: Level upon presentation 5.8, will monitor closely. History of bladder cancer status post [place] pouch: Patient currently receiving palliative radiotherapy and chemotherapy for stage IV-year-old female bladder cancer. Will notify the oncology services. DVT prophylaxis: Heparin subcutaneous Patient is full code. As Ranked By This Provider Problem List: 1. Acute renal failure Qualifiers Acute renal failure type: unspecified Qualified Code: N17.9 - Acute kidney failure, unspecified 2. Transaminitis 3. Sepsis Core Measures/Miscellaneous Acute Coronary Syndrome ACS Diagnosis: No Cerebrovascular Accident CVA/TIA Diagnosis: No Congestive Heart Failure CHF Diagnosis: No Venous Thromboembolism VTE Risk Factors: Acute medical illness, Age > 40, Smoking No [facility] VTE prophylaxis d/t: No contraindications No VTE Pharm Prophylaxis d/t: No contraindications VTE Diagnosis: No VTE Type: NONE VTE Confirmed by (Test): NONE Severe Sepsis Severe Sepsis Present: Yes BC x2: Yes Lactic Acid x2: Yes IV ABX Broad Spectrum: Yes NS/LR Started: Yes Septic Shock Septic Shock Present: Yes BC x2: Yes Lactic Acid: Yes IV ABX Broad Spectrum: Yes Focused Exam Completed: Yes NS/LR 30ml/kg w/in 3hrs: Yes IV Vasopressors started: No Miscellaneous Documentation Attending Case Discussed With: Ant GARNER MD Primary Care Physician: NESSA ALVAREZ DO Level of Patient Care: Critical Care (CRI) Ant GARNER MD 10/12/16 1709: Attending MD Review Statement Attending Statement Attending MD Statement: examined this patient, discuss w/resident/PA/CHANNEL SALES DIRECTOR, agreed w/resident/PA/CHANNEL SALES DIRECTOR, discussed with family, reviewed EMR data (avail), reviewed images, amended to note Attending Assessment/Plan: I have personally seen and examined the patient, and agree with the resident's assessment and plan as above. Briefly, the patient is a 76-year-old male with a complex history including liver cancer, prostate cancer, bladder cancer status post [place] pouch placement, hypertension, and hyperlipidemia. The patient is on a self-catheterization protocol every few hours. The patient recently underwent radiation therapy to the right sacrum a few weeks ago for bone metastases. He also had palliative radiation to the right clavicle. He has also been undergoing chemotherapy, noting he follows with Dr. Claire. The patient was brought into the emergency department after a brief period of unconsciousness. The patient is a very poor historian and does not contribute details to the history. There is no report of fever, chills, nausea, vomiting, shortness of breath or chest pain. The patient was evaluated and found to be hypotensive which did respond to IV fluid hydration. He was further evaluated and found to have evidence of urinary tract infection with a positive UA. His weight blood cell count was 29,000. The patient was in acute renal failure with a creatinine of 3.8 he has an anion gap metabolic acidosis with an increased lactic acid of 4.1. He is complaining of right upper quadrant abdominal discomfort noting that he had a CT scan that showed extensive liver mets, but no evidence of free air, abscess or clear source of infection. The patient was cultured and started on IV ceftriaxone and Flagyl. Impression: 1. Sepsis of urologic origin. 2. Right upper quadrant pain likely secondary to diffuse liver metastases. 3. Acute kidney injury. 4. Transaminitis likely secondary to metastatic liver disease and septic shock. 5. Hypernatremia secondary to dehydration. 6. Hyperkalemia. 7. Bladder cancer, status post recent palliative radiation. The patient remains on chemotherapy. Plan: * Continue IVF hydration. Monitor BP closely. TLC and pressors if MAP is < 65 mmHg. * Strict I&Os. Continue straight cath protocol. * Repeat labs ordered, will need to follow up results and adjust therapy as necessary. * Check labs every 4-6 hours. Monitor lactic acid, coags, troponin, CBC, and ICU bundle. * Replete electrolytes as necessary. * Check an ABG. * We will continue empiric IV antibiotics pending culture results. * Avoid rapid correction of serum sodium. * Nephrology consult called for MARAH. * Oncology consult called for ongoing follow up. * NPO for now. * DVT prophylaxis. * Continue to monitor closely in the critical care unit. * The patient is full code. TEODORA OWEN 10/12/16 1713: Core Measures/Miscellaneous Miscellaneous Documentation Patient sees these Specialists Navigating Officer Resident Review Statement Resident Statement: examined this patient, discussed with events intern, agreed with events intern, discussed with family, reviewed EMR data (avail), discussed with nursing , discussed with case mgmt, reviewed images, amended to note Other Findings: 76 year-old gentleman was brought in by ambulance after he was found, reportedly , unconscious by his . Patient has a significant past medical history of liver cancer, prostate cancer, hypertension, hyperlipidemia, and bladder cancer status post surgical the created urinary pouch ([place] pouch). He is on self- catheterization protocol every 1 or 2 hours. Patient is a poor historian and does not remember the details of why he was brought into the hospital. According to patient he has been at his normal state of health for the past few days, he denies any preceding fever, chills, nausea, vomiting, change in urine characteristics. His baseline patient reports an intermittent mild localized right upper quadrant abdominal pain, which happens on a daily basis and tends to resolve after few minutes, however patient currently reports increasing right upper quadrant abdominal pain with severity of 9 out of 10 without radiation. Patient lives with his . He reports decrease appetite which is not new for the patient. ROS: Tiredness and fatigue and right upper quadrant abdominal pain. Vital signs: 98.6/101/18/100/56/98 Physical exam: G alert and oriented x3, not in acute distress; HEET: dry mucous membranes, - JVD; Heart: S1 S2 no murmur; Lungs: decreased air movement, Abd: well healed mid abdominal scar of th bladder recostruction, RUQ abdominal pain and tenderness, w /o gaurding,- rebound, RLQ: catheterization site ( no drainage, no tenderness)) Extremity: warm, no mottling, no cyanosis, MAIL CENSOR< 3 sec, Pertinent data: Lactic acid 4.1 UA: positive nitrates, WBC 50-75, WBC 29.9 and 6, platelet count 296, Sodium 156 potassium 5.9 chloride 118, bicarbonate 16, BUN 119, creatinine 3.8( in 2012 was 0.9 and three days ago 10/09 Cr 1.4). AG 22 AST 1000 115, ALT 587, alkaline phosphatase 2282 Troponin less than 0.01 ECG: SOFA 11 Assessments 76-year-old w/ hx of cancer was admitted for sepsis. Active problems #1 Sepsis with a urinary origin w/ sofa score of 11 * Admit to ICU * Continue IV hydration with Ringer's lactate- Max 6 lit; MAP > 65 and urinary out put >0.5 ml/kg/h * Ceftriaxone 2000 mg IV daily * Flagyl 500 mg IV every 8 * No urinary culture results of results * Trend lactic acid; is to decrease lactic acid 20% per hour #2 transaminitis upper quadrant tenderness: In the setting of liver shock due to sepsis or, considerably related to metastatic liver disease, which is evident in CT scan from August [address] scan, which showed diffuse hepatic steatosis which appears unchanged. * Oncologist Dr. Cunningham was informed; he will see the patient tomorrow * Trending LFT ; may elevated possible GI consult #3 MARAH: In the setting of sepsis (end organ damage), or obstructive uropathy. Pelvic CT scan did not report any evidence of obstruction and hydronephrosis. * continue IV hydration with Ringer's lactate * repeat labs in the a.m. * Nephrology consult was placed-they will see the patient tomorrow #4 hypernatremia: possibly related to combination of decreased by mouth intake. Free water deficit 3677 mL. Received 4 L of normal saline and currently receiving another 1000 ML of Ringer lactate. * Continue IV hydration with Ringer's lactate * Goal is to decrease sodium 6-8 mEq every 24 hours * Tabs every 4h if it was overcorrected, we might replace the Na to prevent osmotic damage #5 Hyperkalemia and anion gap metabolic acidosis: Primary metabolic acidosis 2/2 to LA w/ respiratory compensation. * correcting acidos with hydration and IV Abx for infection * No need for treatement of High K, since its mostly transcellular shift and tend to resolve after correction of acidosis * Calcium gluconate 1 gr slow infusion #[address] scan findings * pulmonary nodules and liver Dior, unchanged compare to Aug scan #7 Unconfirmed Hx of chronic steroid use; Currently maintaining BP. * Please assess the patient; if was not maintaining BP give stress dose of streoid 100 mg IV solucortef * Check Am cortisol FC Mild pain pathway- tylenol and opioids
--- NOTE | 2016-10-12 16:12 | NUR ---
PT BP 112/62 AT THIS TIME. STATES PAIN IS BETTER AT THIS TIME, PT OFFERS NO COMPLANTS AT THIS TIME. HOUSE STAFF AT BEDSIDE FOR EVAL AT THIS TIME.
--- NOTE | 2016-10-12 17:03 | Admission Certification ---
Admission Certification Certification Statement - As attending physician, I certify that at the time of - admission, based on clinical presentation, severity of - symptoms, need for further diagnostic testing and - therapeutic interventions, and risk of adverse outcomes - without in-hospital treatment, in my clinical assessment, - this patient requires an acute hospital stay for a minimum - of two nights or longer. I have also considered psychsocial - factors such as support system, advanced age, financial - issues, cognitive issues, and failed out-patient treatments, - past re-admission history, safety of patient, and lack of - compliance as applicable. Specific rationale supporting this admission is: Sepsis, renal failure, hypotension and abdominal pain. The patient needs critical care management.
--- NOTE | 2016-10-12 17:04 | NUR ---
LR INFUSING AT 150ML/HR AT THIS TIME PER ORDER
--- NOTE | 2016-10-12 17:04 | CT SCAN REPORT ---
EXAMINATION: CT ABDOMEN AND PELVIS WITHOUT CONTRAST CLINICAL INFORMATION: History of liver cancer with bone metastases. Presents with sepsis. COMPARISON: CT chest, abdomen and pelvis 06/07/2016. TECHNIQUE: Multidetector volumetric imaging was performed from the superior aspect of the liver through the pubic symphysis. Sagittal and coronal reformatted images were obtained on the technologist's workstation. DLP: 448 mGy-cm FINDINGS: LUNG BASES: There is bibasilar dependent atelectasis. A 5 mm nodule is seen within the left inferior major fissure image 3, series 102. A 7 mm nodule is seen medially in the right lower lobe. Previously, the same nodule measured 4 mm. Minimal atelectatic changes are seen in right middle lobe medially. LIVER, GALLBLADDER, AND BILIARY TREE: There are multiple liver lesions seen consistent with hepatic metastatic disease. The liver is mildly enlarged as well. No intrahepatic ductal dilatation seen. There is a 7 mm hypodense area right lobe, image 36 series 2. It represents a small cyst. Gallbladder is not visualized and may be surgically resected or contracted. PANCREAS: Unremarkable. SPLEEN: Unremarkable. ADRENAL GLANDS: Unremarkable. KIDNEYS AND URETERS: Both kidneys are normal size, shape and position. There is moderate bilateral perinephric stranding. An exophytic 1.8 cm lesion in the lower pole measures fluid density suggestive of cyst. Previously visualized hyperdense partially exophytic lesion lower pole right kidney it is stable measuring 1 cm. No radiopaque renal calculi or hydronephrosis seen. BLADDER: The bladder has been surgically removed with right lower quadrant ileal conduit/diverting ileostomy. GASTROINTESTINAL TRACT: There is scattered stool seen throughout the colon without distention. The small-bowel loops are unremarkable. No free air or free fluid seen. ABDOMINAL WALL: A small umbilical hernia containing fat is noted. A right lower quadrant ileostomy is noted. LYMPH NODES: Normal. VASCULAR: Atherosclerotic calcification of abdominal aorta is noted. PELVIC VISCERA: A prominent left inguinal hernia containing intraperitoneal fat and a right inguinal hernia containing fat and a loop of small bowel. OSSEOUS STRUCTURES: No lytic or sclerotic process seen. There are degenerative disc changes at all lumbar disc levels sparing the L3-L4 disc level. No lytic process seen. IMPRESSION: Multiple well-defined hypodense liver lesions suggestive of metastatic disease with mild enlargement. On the previous exam, there was diffuse hepatic steatosis which appears unchanged. The lesions were not seen on old study. Status post cystectomy with diverting ureterostomy into an ileal conduit extending to the right lower quadrant as ileostomy. No hydronephrosis seen in the kidneys. Bilateral renal lesions and moderate bilateral perinephric stranding is stable. Small bilateral pulmonary nodules. The left inferior major fissure nodule is new. Right lower lobe 4 mm nodule has grown to 7 mm nodule size. Recommend CT chest correlation.
--- NOTE | 2016-10-12 17:13 | NUR ---
PT STRAIGHT CATH'D VIA MELANIA POUCH AT THIS TIME. OUTPUT 110CC DARK URINE.
--- NOTE | 2016-10-12 17:50 | NUR ---
PT TO AND FROM CT SCAN WITH THIS RN ON CARDAIReedsy MONITOR. PT BACK IN ROOM. RENAL MD AT BEDSIDE AT THIS TIME.
--- NOTE | 2016-10-12 17:51 | Cons- Nephrology ---
General Information and HPI Consulting Request Date of Consult: 10/12/16 Requested By: PATSY NEVAREZ,Ant PARK Reason for Consult: Evaluation of acute kidney injury Source of Information: patient, old records Exam Limitations: clinical condition History of Present Illness: This 76-year-old gentleman has a history of prostate cancer and bladder cancer. He is status post a robotic-assisted cystectomy in 2012 at the [facility]. Also at that time an [place] pouch was created. He was recently found to have metastatic disease to his liver and to his bones for which she is receiving chemotherapy coupled with radiation therapy. His serum creatinine prior to this has been normal. He is not quite sure how we presented here; he says he woke up and found himself in the hospital. He denies any fevers and chills at home. He complains of pain in the right side of his abdomen near the flank but more between the right upper quadrant and right lower quadrant. She has no history of kidney stones or kidney infections prior to this. He currently self catheterizes his [place] pouch 5 times a day. His serum creatinine on October 09 was 1.4. His serum creatinine today is 3.8. He was also hyperkalemic. Of note, he was on amlodipine at home. I do not see that he was taking nonsteroidal anti-inflammatory drugs or that he has had an LAVON inhibitor. The chemotherapy that he is been receiving has been gemcitabine and cis- [place]. He is also receiving tecentriq.( atezolamib). Apparently the gemcitabine and cis[place] were stopped because of the rapid progression of this disease. Allergies/Medications Allergies: Coded Allergies: NO KNOWN ALLERGIES (08/14/16) Home Med List: Amlodipine (Norvasc) 2.5 MG TABLET 1 TAB PO DAILY HTN (Reported) Atorvastatin Calcium 10 MG TABLET 1 TAB PO DAILY HPL (Reported) Ciprofloxacin HCl (Cipro) 500 MG TABLET 1 TAB PO BID UTI Oxycodone HCl 5 MG TABLET 10 MG PO Q4P PRN PAIN (Reported) Prednisone 20 MG TABLET 30 MG PO TID STEROID (Reported) Prochlorperazine Maleate 10 MG TABLET 10 MG PO Q6-PRN PRN NAUSEA (Reported) Sennosides (Senokot) 8.6 MG TABLET 1 TAB PO DAILY STOOL SOFTENER (Reported) Tramadol HCl 50 MG TABLET 50 MG PO Q6-PRN PRN PAIN (Reported) Past History Travel History Traveled to [place] past 21 day No Medical History Neurological: NONE EENT: NONE Cardiovascular: hypertension, HIGH CHOLESTEROL Respiratory: NONE Gastrointestinal: NONE Hepatic: NONE Renal: MELANIA POUCH Musculoskeletal: NONE Psychiatric: NONE Endocrine: NONE Blood Disorders: NONE Cancer(s): bladder cancer, prostate cancer, LIVER CANCER 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 Surgical History Surgical History: non-contributory Exam & Diagnostic Data Vital Signs and I&O Vital Signs Date Time Temp Pulse Resp B/P Pulse O2 O2 Flow FiO2 Ox Delivery Rate 10/12 1707 97.0 100 20 117/59 10/12 1612 98.6 101 18 112/62 95 Room Air 10/12 1452 98.6 101 18 100/56 98 Room Air 10/12 1324 103 20 100/56 96 Room Air 10/12 1217 92 18 90/55 94 Room Air 10/12 1159 98.8 106 18 87/50 95 Room Air 10/12 1149 110 22 74/42 93 10/12 1117 95 18 95/49 95 Room Air 10/12 1038 97.3 114 18 82/55 94 Room Air 10/12 1030 94 Room Air Intake & Output 10/12 1600 10/12 0400 10/11 1600 10/11 0400 10/10 1600 10/10 0400 Intake Total 200 Output Total Balance 200 Intake, IV 200 Patient 169 lb Weight Physical Exam General Appearance: cachetic Head: atraumatic, normal appearance Eyes: Bilateral: PERRL, EOMI, other (scleral icterus). Ears, Nose, Throat: hearing grossly normal, dry mucus membranes Neck: normal inspection, supple, trachea mid line Respiratory: normal breath sounds, chest non-tender Cardiovascular: regular rate/rhythm Peripheral Pulses: 2+ femoral (R), 2+ femoral (L), 2+ popliteal (R), 2+ popliteal (L), 2+ tibialis posterior (R), 2+ tibialis posterior (L) Gastrointestinal: normal bowel sounds, soft, no organomegaly, tender RLQ Back: normal inspection Neurologic/Psych: no motor/sensory deficits, awake, alert Cranial Nerves: normal hearing, normal speech, PERRL Skin: intact, rash, dry , losing subq tissue, poor turgor Results Pertinent Lab Results: Laboratory Tests 10/12 10/12 10/12 1706 1523 1302 Chemistry Sodium Pending Potassium Pending Chloride Pending Carbon Dioxide Pending Anion Gap Pending BUN Pending Creatinine Pending Glucose Pending Lactic Acid (0.7 - 2.1 mmol/L) Pending 4.1 H Calcium Pending Phosphorus Pending Magnesium Pending Total Bilirubin Pending AST Pending ALT Pending Albumin Pending Urines Urinalysis LIGHT H Urine Color (YEL,AMB,STR) RESHMA Urine Clarity (CLEAR) CLDY H Urine pH (5.0 - 8.0) 6.5 Ur Specific [place] (1.001 - 1.035) 1.020 Urine Protein (NEG,<30 MG/DL) 100 H Urine Ketones (NEG) NEG Urine Nitrite (NEG) POS H Urine Bilirubin (NEG) POS@ICTO H Urine Urobilinogen (0.1 - 1.0 EU/dl) 4.0 H Ur Leukocyte Esterase (NEG) MOD H Ur Microscopic SEDIMENT EXAMINED Urine RBC (0 - 5 /HPF) 15-25 H Urine WBC (0 - 2 /HPF) 50-75 H Ur Epithelial Cells (NONE,FEW) RARE Urine Crystals 1+ CA OX H Urine Bacteria (NEG/NONE) PACKD H Hyaline Casts (0/LPF) RARE H Granular Casts (NONE /LPF) RARE H Urine Mucus (FEW,NONE) PACKD H Micro UA Comment Urine Hemoglobin (NEG) MOD H Urine Glucose (N MG/DL) NEG 10/12 10/12 1044 1044 Chemistry Sodium (137 - 145 mmol/L) 156 *H Potassium (3.5 - 5.1 mmol/L) 5.9 H Chloride (98 - 107 mmol/L) 118 H Carbon Dioxide (22 - 30 mmol/L) 16 L Anion Gap (5 - 16) 22 H BUN (9 - 20 mg/dL) 119 *H Creatinine (0.7 - 1.2 mg/dL) 3.8 H Estimated GFR (>60 ml/min) 16 L BUN/Creatinine Ratio (7 - 25 %) 31.3 H Glucose (65 - 99 mg/dL) 139 H Lactic Acid (0.7 - 2.1 mmol/L) 6.8 H Calcium (8.4 - 10.2 mg/dL) 9.5 Total Bilirubin (0.2 - 1.3 mg/dL) 7.5 H AST (17 - 59 U/L) 1115 H ALT (21 - 72 U/L) 587 H Alkaline Phosphatase (< 127 U/L) 2282 H Total Protein (6.3 - 8.2 g/dL) 5.9 L Albumin (3.5 - 5.0 g/dL) 2.5 L Globulin (1.9 - 4.2 gm/dL) 3.4 Albumin/Globulin Ratio (1.1 - 2.2 %) 0.7 L Hematology CBC w Diff MAN DIFF ORDERED WBC (4.8 - 10.8 /CUMM) 29.9 H RBC (4.70 - 6.10 /CUMM) 3.93 L Hgb (14.0 - 18.0 G/DL) 11.5 L Hct (42 - 52 %) 36.4 L MCV (80.0 - 94.0 FL) 92.6 MCH (27.0 - 31.0 PG) 29.1 RDW (11.5 - 14.5 %) 16.7 H Plt Count (130 - 400 /CUMM) 296 MPV (7.4 - 10.4 FL) 9.5 Segmented Neutrophils (42.2 - 75.2 %) 88 H Band Neutrophils (0.0 - 5.0 %) 6 H Monocytes (1.7 - 9.3 %) 5 Myelocytes (0 - 0 %) 1 H Nucleated RBCs (0.0 - 0.0 /100WBC) 3 H Platelet Estimate (ADEQUATE) ADEQUATE Hypochromic-Microcytic 1+ Anisocytosis 1+ PUBS MCHC (33.0 - 37.0 G/DL) 31.5 L Imaging/Other Studies: PATIENT: ELIEZER STAHL PRESENT AGE: 76 PATIENT ACCOUNT NO: [id number] : 42 LOCATION: [facility] ORDERING PHYSICIAN: MIKALA SANDS MD SERVICE DATE: 10/12/16 EXAM TYPE: CAT - CT ABD & PELVIS W/O IV CONTRAS EXAMINATION: CT ABDOMEN AND PELVIS WITHOUT CONTRAST CLINICAL INFORMATION: History of liver cancer with bone metastases. Presents with sepsis. COMPARISON: CT chest, abdomen and pelvis 06/07/2016. TECHNIQUE: Multidetector volumetric imaging was performed from the superior aspect of the liver through the pubic symphysis. Sagittal and coronal reformatted images were obtained on the technologist's workstation. DLP: 448 mGy-cm FINDINGS: LUNG BASES: There is bibasilar dependent atelectasis. A 5 mm nodule is seen within the left inferior major fissure image 3, series 102. A 7 mm nodule is seen medially in the right lower lobe. Previously, the same nodule measured 4 mm. Minimal atelectatic changes are seen in right middle lobe medially. LIVER, GALLBLADDER, AND BILIARY TREE: There are multiple liver lesions seen consistent with hepatic metastatic disease. The liver is mildly enlarged as well. No intrahepatic ductal dilatation seen. There is a 7 mm hypodense area right lobe, image 36 series 2. It represents a small cyst. Gallbladder is not visualized and may be surgically resected or contracted. PANCREAS: Unremarkable. SPLEEN: Unremarkable. ADRENAL GLANDS: Unremarkable. KIDNEYS AND URETERS: Both kidneys are normal size, shape and position. There is moderate bilateral perinephric stranding. An exophytic 1.8 cm lesion in the lower pole measures fluid density suggestive of cyst. Previously visualized hyperdense partially exophytic lesion lower pole right kidney it is stable measuring 1 cm. No radiopaque renal calculi or hydronephrosis seen. BLADDER: The bladder has been surgically removed with right lower quadrant ileal conduit/diverting ileostomy. GASTROINTESTINAL TRACT: There is scattered stool seen throughout the colon without distention. The small-bowel loops are unremarkable. No free air or free fluid seen. ABDOMINAL WALL: A small umbilical hernia containing fat is noted. A right lower quadrant ileostomy is noted. LYMPH NODES: Normal. VASCULAR: Atherosclerotic calcification of abdominal aorta is noted. PELVIC VISCERA: A prominent left inguinal hernia containing intraperitoneal fat and a right inguinal hernia containing fat and a loop of small bowel. OSSEOUS STRUCTURES: No lytic or sclerotic process seen. There are degenerative disc changes at all lumbar disc levels sparing the L3-L4 disc level. No lytic process seen. IMPRESSION: Multiple well-defined hypodense liver lesions suggestive of metastatic disease with mild enlargement. On the previous exam, there was diffuse hepatic steatosis which appears unchanged. The lesions were not seen on old study. Status post cystectomy with diverting ureterostomy into an ileal conduit extending to the right lower quadrant as ileostomy. No hydronephrosis seen in the kidneys. Bilateral renal lesions and moderate bilateral perinephric stranding is stable. Small bilateral pulmonary nodules. The left inferior major fissure nodule is new. Right lower lobe 4 mm nodule has grown to 7 mm nodule size. Recommend CT chest correlation. DICTATED BY: DEZ CRAFT MD DATE/TIME DICTATED:10/12/161306 CARBURETOR REBUILDER:ALEJANDRO DATE/TIME TRANSCRIBED:10/12/161306 CONFIDENTIAL, DO NOT COPY WITHOUT APPROPRIATE AUTHORIZATION. <Electronically signed in Other Vendor System> SIGNED BY: DEZ CRAFT MD 10/12/16 1704 PATIENT: ELIEZER STAHL PRESENT AGE: 76 PATIENT ACCOUNT NO: [id number] : 42 LOCATION: [facility] ORDERING PHYSICIAN: MIKALA SANDS MD SERVICE DATE: 10/12/16 EXAM TYPE: RAD - XRY-PORTABLE CHEST XRAY EXAMINATION: XR PORTABLE CHEST CLINICAL INFORMATION: Fever COMPARISON: 08/14/2016 TECHNIQUE: Portable AP view of the chest was obtained. FINDINGS: Lung volumes are low. The previously noted platelike opacity in the left lower lung has resolved. No consolidation, pulmonary edema, pleural effusion, or pneumothorax is evident. There are degenerative changes of the spine without evidence of acute osseous abnormality. IMPRESSION: Low lung volumes without acute abnormality. DICTATED BY: ADRIANNA NULL MD DATE/TIME DICTATED:10/12/161130 CARBURETOR REBUILDER:ALEJANDRO DATE/TIME TRANSCRIBED:10/12/161130 CONFIDENTIAL, DO NOT COPY WITHOUT APPROPRIATE AUTHORIZATION. <Electronically signed in Other Vendor System> SIGNED BY: ADRIANNA NULL MD 10/12/161134 Assessment/Plan Assessment/Recommendations Assessment: 1. Acute kidney injury. He was hypotensive and septic upon presentation. This seems to be better. Suspect that his kidney function will return to his previous baseline with treatment of his underlying condition as well as vigorous volume replacement. Certainly there is no acute indication for hemodialysis. His serum creatinine on October 03 was 1.10. There was no hydronephrosis noted on his CAT scan earlier today. The only other issue would be, given his jaundice, could he be developing hepatorenal syndrome due to his metastatic cancer in his liver? 2. Pain this pain would seem to have been in process for a number of weeks and may reflect his metastatic disease. 3. 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 He had a pelvic lymph node biopsy in June of this past year which was likewise positive. 4. Metastatic disease to the liver. In 1 sense, one is relieved to see that he arrived hypotensive and responded to fluids. The other more frightening possibility is whether or not his acute kidney injury could represent a development of hepatorenal syndrome. Recommendations: 1. Continuous vigorous volume replacement area 2. Await cultures continue antibiotics. 3. Please send a spot or random urine protein to creatinine ratio and more importantly a random urine sodium and creatinine. He has already received 3 L of fluid, so it would not be unusual for the urinary sodium to be elevated. Again this would be to exclude the possibility of a severe pre-renal picture due to decompensating liver function. 4. There is at this time no dialysis need. Given the appearance of his liver and the clinical course of this disease, I am not certain that that would be appropriate.
--- NOTE | 2016-10-12 17:55 | NUR ---
CRITICAL TEST RESULTS [id number] ELIEZER STAHL TESTS AND RESULTS: BUN 119 Results received and read back by: SABINA COLLINS Results received date and time: 10/12/16 1755 The following provider was notified of the results, and read the results back: HOUSE STAFF PAGED Notified date and time: 10/12/16 at 1132
--- NOTE | 2016-10-12 18:18 | NUR ---
ATTEMPTED TO CALL REPORT TO ICU, NURSE WILL CALL BACK
--- NOTE | 2016-10-12 19:05 | NUR ---
ATTEMPTED TO CALL REPORT AGAIN TO ICU, PER ICU, THEY ARE IN REPORT AND CANNOT TAKE REPORT AT THIS TIME. AUTOMATIC DRILLING MACHINE OPERATOR AWARE.
--- NOTE | 2016-10-12 19:28 | NUR ---
REPORT GIVEN TO ICU AT THIS TIME. DISTRIBUTION CALLED
--- NOTE | 2016-10-12 19:59 | NUR ---
PT TRANSPORTED TO ICU WITH THIS RN WITHOUT INCIDENT
[2016-10-12 20:00] VITALS: BP 120/60
--- NOTE | 2016-10-12 22:09 | CT SCAN REPORT ---
EXAMINATION: CT CHEST WITHOUT CONTRAST CLINICAL INFORMATION: Bladder cancer. Liver metastases. Sepsis. COMPARISON: CT of the chest on 06/07/2016. Chest x-ray on 08/14/2016 and earlier today. TECHNIQUE: Multidetector volumetric CT imaging of the chest was done. Axial MIP volume rendering provided. Sagittal and coronal reformatted images were obtained. DLP: 341 mGy-cm FINDINGS: SHIPPING AND RECEIVING ASSOCIATE: Linear atelectatic opacities are seen in both lower lobes. LUNGS: Subpleural nodule in the right major fissure measures 6 mm. Series 4, image 226. Linear subsegmental atelectatic alterations of the right lower lobe are secondary to the mild elevation of the right hemidiaphragm, (due to the enlarged liver). In addition, there are similar atelectatic changes in the posterior costophrenic sulcus of the left lower lobe. Resolution of the lower lobes is compromised by motion during the scan. MEDIASTINUM: There is no bulk lymphadenopathy in the mediastinum or either hilar region. Diffuse calcifications are present in the coronary arteries and calcific plaques are present throughout the thoracic aorta. PLEURA: There is no pleural effusion. No pleural mass or thickening. AXILLA: No lymphadenopathy. UPPER ABDOMEN: The liver is enlarged and grossly filled with metastatic lesions to numerous to count. OSSEOUS STRUCTURES: There is a high likelihood of a pathologic fracture involving the right clavicle. Series 2, image 7. IMPRESSION: 1. No consolidating pneumonia. 2. Extensive metastatic disease of the liver. 3. Presumed pathologic fracture of the right clavicle.
[2016-10-13] VITALS: BP 100/50
--- NOTE | 2016-10-13 02:43 | NUR ---
ADMIT ACCEPTANCE: REC'D REPORT FROM ALEX[facility] BAE IN ER. DX: UROSEPSIS. SBP WAS IN THE 80'S 7 REC'D FREQ IVF NS 1L BOLUS X3-5L. SBP IN THE ER 90'S. 1999 ARRIVED IN THE ICU TO ROOM 102 VIA STRETCHER. TRANSFERRED SAFELY USING THE SLIDING BOARD W/4 STAFF ONTO THE BED. ON THE ASSOCIATE PROFESSOR OF HISTORY ST W/BBB HR IN 100'S, SBP MANUAL/120'S & AUTO/90-100'S. ON RA POX 95% LS CLEAR BUT DIMINISHED AT THROUGHOUT THE LOBES. AFEBRILE TEMP 97 TEMPORAL. A/O X3. MEEKS WELL. NO SKIN ISSUES. ABD DISTENDED & SOFT, PT HAS AN MELANIA POUCH RLQ ABD STOMAINTACT. PINKH/O HAD BLADDER CA & SX REMOVED THE BLADDER. PT/ STATES ST CATH FOR 5-6HRS. C/O R SIDE ABD NEAR THE LIVER AREA SCORE 8-10. INFORMED DR. CHALINO GONZALEZ. PT'S STATUS & LABS. LACTIC 4.1, K 6.0. ORDERS GIVEN. 2[address] ST CATH TO HIS MELANIA POUCH W/THE 'S ASSISTANCE. ALOT OF MANIPULATION TO FIND THE URINE PER STATED DRAINED APPROX 100ML OF RESHMA URINE W/SEDIMENTS/MUCOUS. HUNG 1L NS BOLUS, 1 AMP CA GLUCONATE & MORPHINE IVP GIVEN SEE EMAR. EKG DONE. 0035 ANOTHER SET OF LABS DRAWN. LABS RESULTS CAME BACK K 4.9 & LACTIC ACID 3.1. INFORMED DR. CAMP THAT I GAVE CA GLUCONATE AFTER THE LABS WERE DRAWN. STATES IT'S OK. PREDISONE WAS CHANGED TO SOLUCORTEF IV D/T NPO. PT APPEARED TO BE CONFUSED/DISORIENTED & DROWSEY. REASSURED/REORIENTED. CONT TO MONITOR.
[2016-10-13 04:59] LABS: MEAN CORPUSCULAR HGB 29.6 PG (27.0-31.0); MEAN CORPUSCULAR HGB CONC 31.6 G/DL (33.0-37.0); MEAN CORPUSCULAR VOLUME 93.7 FL (80.0-94.0); MEAN PLATELET VOLUME 9.8 FL (7.4-10.4); PLATELET COUNT 226 /CUMM (130-400); RBC DISTRIBUTION WIDTH 16.8 % (11.5-14.5); RED BLOOD CELL CT 3.63 /CUMM (4.70-6.10); WHITE BLOOD CELL COUNT 21.4 /CUMM (4.8-10.8)
[2016-10-13 08:00] VITALS: BP 80/30
--- NOTE | 2016-10-13 09:20 | PN- CRCU ---
Subjective HPI/Critical Care Issues: The patient is awake, but remains confused. She needs to complain of right upper quadrant pain. His blood pressure has been stable with IV fluid resuscitation. The patient is afebrile. His oxygen saturations are in the mid 90s on room air. The patient's renal dysfunction continues to worsen. He is also hyperkalemic today with an increasing serum sodium. Insulin and dextrose were given for hyperglycemia. The patient has not been given Kayexalate as he is having swallowing difficulty. Objective Current Medications: Current Medications Sig/Marisela Start time Last Medication Dose Route Stop Time Status Admin Acetaminophen 325 MG Q4P PRN 10/12 2044 AC PO Calcium Gluconate 1 GM ONCE ONE 10/13 06 DC 10/13 Sodium Chloride 100 ML IV 10/13 0729 0630 Calcium Gluconate 1 GM ONCE ONE 10/12 2315 DC 10/13 Sodium Chloride 100 ML IV 10/13 0014 0108 Ceftriaxone Sodium 2,000 MG DAILY 10/13 1000 AC IV Ceftriaxone Sodium 0 .STK-MED ONE 10/12 1152 DC .ROUTE Ceftriaxone Sodium 2,000 MG ONCE ONE 10/12 1115 DC 10/12 IV 10/12 1116 1155 Dextrose 25 GM ONCE ONE 10/13 0630 DC 10/13 IV 10/13 0631 0651 Heparin Sodium 5,000 UNIT Q8 10/12 2200 AC 10/13 (Porcine) SC 0646 Hydrocortisone 50 MG ONCE ONE 10/13 0130 DC 10/13 Sodium Succinate IV 10/13 0131 0205 Insulin Human Regular 10 UNITS ONCE ONE 10/13 0630 DC IV 10/13 0631 Insulin Human Regular 10 UNITS ONCE ONE 10/13 0630 DC 10/13 IV 10/13 0631 0652 Lactated Ringer's 1,000 ML ONCE ONE 10/13 0800 CAN IV 10/13 1559 Lactated Ringer's 1,000 ML ONCE ONE 10/12 2045 DC 10/12 IV 10/13 0444 2045 Lactated Ringer's 1,000 ML ONCE ONE 10/12 1700 DC 10/12 IV 10/12 2339 1704 Metronidazole 500 MG IQ8 10/13 0000 AC 10/12 N/A 1 UNIT IV 233 Morphine Sulfate 0.5 MG Q6-PRN PRN 10/12 2315 AC IV Morphine Sulfate 1 MG Q6-PRN PRN 10/12 2045 DC 10/12 IV 2046 Prednisone 20 MG TID 10/13 0021 DC PO Prednisone 30 MG TID 10/12 2318 DC PO Senna 187 MG AT BEDTIME 10/13 2200 AC PO Sodium Chloride 1,000 ML Q10H 10/13 0815 AC IV Sodium Chloride 1,000 ML BOLUS ONE 10/12 2315 DC 10/12 IV 10/13 0014 2327 Sodium Chloride 1,000 ML ONCE ONE 10/12 1500 DC 10/12 IV 10/12 2139 1508 Sodium Chloride 1,000 ML BOLUS ONE 10/12 1200 DC 10/12 IV 10/12 1259 1155 Sodium Chloride 1,000 ML BOLUS ONE 10/12 1100 DC 10/12 IV 10/12 1159 1105 Sodium Chloride 1,000 ML BOLUS ONE 10/12 1100 DC 10/12 IV 10/12 1159 1105 Sodium Polystyrene 60 ML ONCE ONE 10/13 0800 DC Sulfonate PO 10/13 0801 Sodium Polystyrene 60 ML ONCE ONE 10/13 0630 DC Sulfonate PO 10/13 0631 Tramadol HCl 0 .STK-MED ONE 10/12 1506 DC PO Tramadol HCl 50 MG ONCE ONE 10/12 1500 DC 10/12 PO 10/12 1501 1508 Vital Signs & I&O Last 24 Hrs of Vitals and I&O: Vital Signs Date Time Temp Pulse Resp B/P Pulse O2 O2 Flow FiO2 Ox Delivery Rate 10/13 0400 94 Room Air 10/13 0000 98.4 105 18 100/50 95 Room Air 10/13 0000 95 Room Air 10/12 2000 95 Room Air 10/12 2000 97.0 105 25 120/60 95 Room Air 10/12 1900 97.0 104 22 112/64 10/12 1711 97.2 103 18 103/55 95 Room Air 10/12 1707 97.0 100 20 117/59 10/12 1612 98.6 101 18 112/62 95 Room Air 10/12 1452 98.6 101 18 100/56 98 Room Air 10/12 1324 103 20 100/56 96 Room Air 10/12 1217 92 18 90/55 94 Room Air 10/12 1159 98.8 106 18 87/50 95 Room Air 10/12 1149 110 22 74/42 93 10/12 1117 95 18 95/49 95 Room Air 10/12 1038 97.3 114 18 82/55 94 Room Air 10/12 1030 94 Room Air Intake & Output 10/13 1600 10/13 0800 10/13 0000 Intake Total 2047 250 Output Total 250 100 Balance 1797 150 Intake, IV 2046 250 Intake, Oral 0 0 Number 0 0 Bowel Movements Output, Urine 250 100 Patient 171 lb 171 lb Weight Exam General Appearance: alert, awake, comfortable Head: atraumatic, normal appearance Neck: supple Respiratory: no respiratory distress, quiet respiration Cardiovascular: regular rate/rhythm Abdomen: soft, tenderness with right upper quadrant palpation Extremities: no edema Skin: intact, normal color, warm/dry Results Last 24 Hrs of Lab Results: Laboratory Tests 10/13/16 0345: Anion Gap 17 H, Estimated GFR 17 L, Glucose 87, Lactic Acid 3.3 H, Calcium 8.4, Phosphorus 6.3 H, Magnesium 2.8 H, Total Bilirubin 6.6 H, AST 1555 H, ALT 591 H, Albumin 2.0 L, Cortisol AM Sample > 61.6 H, CBC w Diff MAN DIFF ORDERED, RBC 3.63 L, MCV 93.7, MCH 29.6, RDW 16.8 H, MPV 9.8, Segmented Neutrophils 91 H, Band Neutrophils 4, Lymphocytes 1 L, Monocytes 3, Metamyelocytes 1, Nucleated RBCs 2 H, Platelet Estimate ADEQUATE, Polychromasia 1+, Hypochromic-Microcytic 1+, Poikilocytosis 1+, Ovalocytes 1+, PUBS MCHC 31.6 L, Fld Total RBCs Counted 100 10/13/16 0205: Lactic Acid Cancelled 10/13/16 0035: Anion Gap 14, Estimated GFR 21 L, Glucose 91, Lactic Acid 3.1 H, Calcium 6.9 L, Phosphorus 5.1 H, Magnesium 2.4 H, Total Bilirubin 5.2 H, AST 1156 H, ALT 475 H, Albumin 1.6 L 10/12/162049: Lactic Acid 4.1 H 10/12/162049: Anion Gap 19 H, Estimated GFR 17 L, Glucose 131 H, Calcium 8.7, Phosphorus 6.8 H, Magnesium 3.0 H, Total Bilirubin 7.0 H, AST 1407 H, ALT 613 H, Albumin 2.2 L, TSH 0.043 L 10/12/161849: pH 7.38, pCO2 24 L, pO2 78 L, HCO3 14 L, ABG O2 Sat (Measured) 94.0 L, P-50 (Temp Corrected) N, Carboxyhemoglobin 0.3 L, O2 Concentration % R/A, Temperature 97.2, Phlebotomy Draw Site RIGHT RADIAL 10/12/16 1706: Anion Gap 19 H, Estimated GFR 18 L, Glucose 166 H, Lactic Acid 4.3 H, Calcium 8.7, Phosphorus 6.3 H, Magnesium 2.9 H, Total Bilirubin 6.9 H, AST 1382 H, ALT 602 H, Albumin 2.2 L 10/12/16 1523: Lactic Acid 4.1 H 10/12/16 1302: Ur Random Creatinine 96.1, U Random Total Protein 111.3 H, Protein/Creatinin Ratio 1.10 H 10/12/16 1302: Urinalysis LIGHT H, Urine Color RESHMA, Urine Clarity CLDY H, Urine pH 6.5, Ur Specific [place] 1.020, Urine Protein 100 H, Urine Ketones NEG, Urine Nitrite POS H, Urine Bilirubin POS@ICTO H, Urine Urobilinogen 4.0 H, Ur Leukocyte Esterase MOD H, Ur Microscopic SEDIMENT EXAMINED, Urine RBC 15-25 H, Urine WBC 50-75 H, Ur Epithelial Cells RARE, Urine Crystals 1+ CA OX H, Urine Bacteria PACKD H, Hyaline Casts RARE H, Granular Casts RARE H, Urine Mucus PACKD H, Micro UA Comment , Urine Hemoglobin MOD H, Urine Glucose NEG 10/12/16 1044: Lactic Acid 6.8 H 10/12/16 1044: Anion Gap 22 H, Estimated GFR 16 L, BUN/Creatinine Ratio 31.3 H, Glucose 139 H, Calcium 9.5, Total Bilirubin 7.5 H, AST 1115 H, ALT 587 H, Alkaline Phosphatase 2282 H, Total Protein 5.9 L, Albumin 2.5 L, Globulin 3.4, Albumin /Globulin Ratio 0.7 L, CBC w Diff MAN DIFF ORDERED, RBC 3.93 L, MCV 92.6, MCH 29.1, RDW 16.7 H, MPV 9.5, Segmented Neutrophils 88 H, Band Neutrophils 6 H, Monocytes 5, Myelocytes 1 H, Nucleated RBCs 3 H, Platelet Estimate ADEQUATE, Hypochromic-Microcytic 1+, Anisocytosis 1+, PUBS MCHC 31.5 L Last 24 Hrs of Micro Results: Cultures pending. Impression/Plan Impression/Plan Impression/Plan: Impression: 1. Sepsis of urologic origin. 2. Right upper quadrant pain, elevated bilirubin and transaminitis secondary to diffuse liver metastases. 3. Acute kidney injury, worsening despite volume repletion. 4. Transaminitis likely secondary to metastatic liver disease and septic shock. 5. Hypernatremia, not improved with IVFs. 6. Persistent hyperkalemia. 7. Bladder cancer and prostate cancer, status post recent palliative radiation and chemotherapy. Recommendations: Plan: * Change to 1/2 NS at 125/ hour. TLC and pressors if MAP is < 65 mmHg. * Give D5W 500 ml bolus x 1 now. * Avoid rapid correction of serum sodium. * Strict I&Os. Continue straight cath protocol. * Continue to check labs every 6 hours. * Electrolyte management as necessary. * We will continue empiric IV antibiotics pending culture results. * We will continue to follow nephrology and oncology's recommendations. Appreciate input. * NPO for now. Please order a swallowing evaluation to rule out dysphagia. * DVT prophylaxis at all times. * Continue to monitor closely in the critical care unit. * The patient is full code. Oncology will follow up with the patient this weekend and have a goals of care discussion with the patient and family. * Poor prognosis.
--- NOTE | 2016-10-13 09:48 | Cons- Oncology ---
General Information and HPI Consulting Request Date of Consult: 10/13/16 Requested By: Ant GARNER MD Reason for Consult: bladder cancer, liver failure, renal failure Source of Information: patient, old records Exam Limitations: clinical condition History of Present Illness: Mr. Hyde is a 76-year-old male with metastatic bladder cancer status post gemcitabine/cisplatin and recently atezolizumab who presents with progressive weakness. He is unable to provide much history. He reports feeling weak recently and has pain in the RUQ. In the ED, he was noted to have significant abnormalities with elevate sodium up to 156, elevated potassium, elevated creatinine, and elevated liver enzymes. CT scan was done and demonstrated significant liver disease. There was no intrahepatic or extrahepatic ductal dilatation. He was afebrile. He was noted to be hypotensive. He was admitted to the ICU for further evaluation. With regard to his malignant diagnosis, he was seen in 2012 for T2 high-grade urothelial carcinoma. He underwent 3 cycles of neoadjuvant MVAC followed by a cystectomy and ileal conduit. Based on the suspicion of retroperitoneal lymph node on imaging in June, the patient then underwent a CT-guided biopsy at [place] on 07/20/2017. The pelvic lymph node was positive for metastatic high- grade urothelial carcinoma. He was started on gemcitabine with cisplatin on 04/2017. Due to progression with liver metastases, he was changed to atezolizumab on 09/11/2016. He was seen by Dr. Claire on 09/29/2016 and was noted to have worsening renal function and liver function. Due to concern for hepattitis , Dr. Claire placed the patient on prednisone. His blood work on 10/09/2016 demonstrated a creatinine of 1.4 and bilirubin of 6.7. Bilirubin was 3.2 on 10/03 and 1.1 on 09/11/2016. He has also recently underwent radiation to the sacrum for palliation. Patient also has a history of prostate cancer treated with radiation in 2001. Allergies/Medications Allergies: Coded Allergies: NO KNOWN ALLERGIES (08/14/16) Home Med List: Amlodipine (Norvasc) 2.5 MG TABLET 1 TAB PO DAILY HTN (Reported) Atorvastatin Calcium 10 MG TABLET 1 TAB PO DAILY HPL (Reported) Ciprofloxacin HCl (Cipro) 500 MG TABLET 1 TAB PO BID UTI Oxycodone HCl 5 MG TABLET 10 MG PO Q4P PRN PAIN (Reported) Prednisone 20 MG TABLET 30 MG PO TID STEROID (Reported) Prochlorperazine Maleate 10 MG TABLET 10 MG PO Q6-PRN PRN NAUSEA (Reported) Sennosides (Senokot) 8.6 MG TABLET 1 TAB PO DAILY STOOL SOFTENER (Reported) Tramadol HCl 50 MG TABLET 50 MG PO Q6-PRN PRN PAIN (Reported) Current Medications: Current Medications Sig/Marisela Start time Last Medication Dose Route Stop Time Status Admin Acetaminophen 325 MG Q4P PRN 10/12 2045 AC PO Calcium Gluconate 1 GM ONCE ONE 10/13 06 DC 10/13 Sodium Chloride 100 ML IV 10/13 0729 0630 Calcium Gluconate 1 GM ONCE ONE 10/12 2315 DC 10/13 Sodium Chloride 100 ML IV 10/13 0014 0108 Ceftriaxone Sodium 2,000 MG DAILY 10/13 1000 AC IV Ceftriaxone Sodium 0 .STK-MED ONE 10/12 1152 DC .ROUTE Ceftriaxone Sodium 2,000 MG ONCE ONE 10/12 1115 DC 10/12 IV 10/12 1116 1155 Dextrose 25 GM ONCE ONE 10/13 0630 DC 10/13 IV 10/13 0631 0651 Heparin Sodium 5,000 UNIT Q8 10/12 2200 AC 10/13 (Porcine) SC 0646 Hydrocortisone 50 MG ONCE ONE 10/13 0130 DC 10/13 Sodium Succinate IV 10/13 0131 0205 Insulin Human Regular 10 UNITS ONCE ONE 10/13 0630 DC IV 10/13 0631 Insulin Human Regular 10 UNITS ONCE ONE 10/13 0630 DC 10/13 IV 10/13 0631 0652 Lactated Ringer's 1,000 ML ONCE ONE 10/13 0800 CAN IV 10/13 1559 Lactated Ringer's 1,000 ML ONCE ONE 10/12 2045 DC 10/12 IV 10/13 0444 2045 Lactated Ringer's 1,000 ML ONCE ONE 10/12 1700 DC 10/12 IV 10/12 2339 1704 Metronidazole 500 MG IQ8 10/13 0000 AC 10/12 N/A 1 UNIT IV 2336 Morphine Sulfate 0.5 MG Q6-PRN PRN 10/12 2315 AC IV Morphine Sulfate 1 MG Q6-PRN PRN 10/12 2045 DC 10/12 IV 2046 Prednisone 20 MG TID 10/13 0021 DC PO Prednisone 30 MG TID 10/12 2318 DC PO Senna 187 MG AT BEDTIME 10/13 2200 AC PO Sodium Chloride 1,000 ML Q10H 10/13 0815 AC 10/13 IV 0825 Sodium Chloride 1,000 ML BOLUS ONE 10/12 2315 DC 10/12 IV 10/13 0014 2327 Sodium Chloride 1,000 ML ONCE ONE 10/12 1500 DC 10/12 IV 10/12 2139 1508 Sodium Chloride 1,000 ML BOLUS ONE 10/12 1200 DC 10/12 IV 10/12 1259 1155 Sodium Chloride 1,000 ML BOLUS ONE 10/12 1100 DC 10/12 IV 10/12 1159 1105 Sodium Chloride 1,000 ML BOLUS ONE 10/12 1100 DC 10/12 IV 10/12 1159 1105 Sodium Polystyrene 60 ML ONCE ONE 10/13 0800 DC Sulfonate PO 10/13 0801 Sodium Polystyrene 60 ML ONCE ONE 10/13 0630 DC Sulfonate PO 10/13 0631 Tramadol HCl 0 .STK-MED ONE 10/12 1506 DC PO Tramadol HCl 50 MG ONCE ONE 10/12 1500 DC 10/12 PO 10/12 1501 1508 Review of Systems Review of Systems GI: Reports: abdominal pain. All Other Systems: Reviewed and Negative (limited due to mental status) Past History Travel History Traveled to [place] past 21 day No Medical History Blood Transfusion Hx: No Neurological: NONE EENT: NONE Cardiovascular: hypertension, HIGH CHOLESTEROL Respiratory: NONE Gastrointestinal: NONE Hepatic: NONE Renal: MELANIA POUCH Musculoskeletal: NONE Psychiatric: NONE Endocrine: NONE Blood Disorders: NONE Cancer(s): bladder cancer, prostate cancer, LIVER CANCER [employer]/Reproductive: NONE Surgical History Surgical History: non-contributory Family History Relations & Conditions If Any: Relation not specified for: *No pertinent family history Psychosocial History Where Do You Live? Home Who Do You Live With? spouse Services at Home: None Primary Language: Malay Smoking Status: Former Smoker ETOH Use: denies use Illicit Drug Use: denies illicit drug use Functional Ability ADLs Needs Assist: dressing, eating, toileting, bathing. IADLs Needs Assist: shopping, housework, finances, food prep, telephone, transportation, medication admin. Exam & Diagnostic Data Vital Signs and I&O Vital Signs Date Time Temp Pulse Resp B/P Pulse O2 O2 Flow FiO2 Ox Delivery Rate 10/13 0400 94 Room Air 10/13 0000 98.4 105 18 100/50 95 Room Air 10/13 0000 95 Room Air 10/12 2000 95 Room Air 10/12 2000 97.0 105 25 120/60 95 Room Air 10/12 1900 97.0 104 22 112/64 10/12 1711 97.2 103 18 103/55 95 Room Air 10/12 1707 97.0 100 20 117/59 10/12 1612 98.6 101 18 112/62 95 Room Air 10/12 1452 98.6 101 18 100/56 98 Room Air 10/12 1324 103 20 100/56 96 Room Air 10/12 1217 92 18 90/55 94 Room Air 10/12 1159 98.8 106 18 87/50 95 Room Air 10/12 1149 110 22 74/42 93 16 1117 95 18 95/49 95 Room Air 10/12 1038 97.3 114 18 82/55 94 Room Air 10/12 1030 94 Room Air Intake & Output 10/13 1600 10/13 0800 10/13 0000 Intake Total 2047 250 Output Total 250 100 Balance 1797 150 Intake, IV 2047 250 Intake, Oral 0 0 Number 0 0 Bowel Movements Output, Urine 250 100 Patient 77.564 kg 77.564 kg Weight Physical Exam General Appearance: no apparent distress, lethargic, thin Head: atraumatic Eyes: Bilateral: PERRL. Ears, Nose, Throat: normal pharynx Respiratory: normal breath sounds, chest non-tender, quiet respiration Cardiovascular: tachycardia Gastrointestinal: normal bowel sounds, tenderness (RUQ) Neurologic/Psych: awake, oriented to self, lethargic Skin: intact, normal color Lymphatic: no anterior cervical dafne Last 48 Hours of Lab Results: Laboratory Tests 10/13 10/13 10/13 0345 0205 0035 Chemistry Sodium (137 - 145 mmol/L) 157 *H 155 H Potassium (3.5 - 5.1 mmol/L) 6.2 *H 4.9 Chloride (98 - 107 mmol/L) 124 H 127 H Carbon Dioxide (22 - 30 mmol/L) 16 L 14 L Anion Gap (5 - 16) 17 H 14 BUN (9 - 20 mg/dL) 121 *H 102 *H Creatinine (0.7 - 1.2 mg/dL) 3.5 H 2.9 H Estimated GFR (>60 ml/min) 17 L 21 L Glucose (65 - 99 mg/dL) 87 91 Lactic Acid (0.7 - 2.1 mmol/L) 3.3 H Cancelled 3.1 H Calcium (8.4 - 10.2 mg/dL) 8.4 6.9 L Phosphorus (2.5 - 4.5 mg/dL) 6.3 H 5.1 H Magnesium (1.6 - 2.3 mg/dL) 2.8 H 2.4 H Total Bilirubin (0.2 - 1.3 mg/dL) 6.6 H 5.2 H AST (17 - 59 U/L) 1555 H 1156 H ALT (21 - 72 U/L) 591 H 475 H Albumin (3.5 - 5.0 g/dL) 2.0 L 1.6 L Cortisol AM Sample (4.46 - 22.7 ug/dL) > 61.6 H Hematology CBC w Diff MAN DIFF ORDERED WBC (4.8 - 10.8 /CUMM) 21.4 H RBC (4.70 - 6.10 /CUMM) 3.63 L Hgb (14.0 - 18.0 G/DL) 10.8 L Hct (42 - 52 %) 34.0 L MCV (80.0 - 94.0 FL) 93.7 MCH (27.0 - 31.0 PG) 29.6 RDW (11.5 - 14.5 %) 16.8 H Plt Count (130 - 400 /CUMM) 226 MPV (7.4 - 10.4 FL) 9.8 Segmented Neutrophils (42.2 - 75.2 %) 91 H Band Neutrophils (0.0 - 5.0 %) 4 Lymphocytes (20.5 - 51.1 %) 1 L Monocytes (1.7 - 9.3 %) 3 Metamyelocytes (0.0 - 1.0 %) 1 Nucleated RBCs (0.0 - 0.0 /100WBC) 2 H Platelet Estimate (ADEQUATE) ADEQUATE Polychromasia 1+ Hypochromic-Microcytic 1+ Poikilocytosis 1+ Ovalocytes 1+ PUBS MCHC (33.0 - 37.0 G/DL) 31.6 L Other Body Source Fld Total RBCs Counted (%) 100 03/16 03/16 03/16 03/16 03/16 2050 2050 1850 1706 1523 Blood Gas pH (7.35 - 7.45 PH) 7.38 pCO2 (35 - 45 TORR) 24 L pO2 (80 - 100 TORR) 78 L HCO3 (21 - 28 MEQ/L) 14 L ABG O2 Sat (Measured) (>96.0 %) 94.0 L P-50 (Temp Corrected) N Carboxyhemoglobin (1.5 - 5.0 %) 0.3 L O2 Concentration % R/A Temperature (97.0 - 100.0 FARH) 97.2 Chemistry Sodium (137 - 145 mmol/L) 154 H 154 H Potassium (3.5 - 5.1 mmol/L) 6.0 *H 5.8 H Chloride (98 - 107 mmol/L) 119 H 120 H Carbon Dioxide (22 - 30 mmol/L) 17 L 15 L Anion Gap (5 - 16) 19 H 19 H BUN (9 - 20 mg/dL) 120 *H 119 *H Creatinine (0.7 - 1.2 mg/dL) 3.6 H 3.4 H Estimated GFR (>60 ml/min) 17 L 18 L Glucose (65 - 99 mg/dL) 131 H 166 H Lactic Acid (0.7 - 2.1 mmol/L) 4.1 H 4.3 H 4.1 H Calcium (8.4 - 10.2 mg/dL) 8.7 8.7 Phosphorus (2.5 - 4.5 mg/dL) 6.8 H 6.3 H Magnesium (1.6 - 2.3 mg/dL) 3.0 H 2.9 H Total Bilirubin (0.2 - 1.3 mg/dL) 7.0 H 6.9 H AST (17 - 59 U/L) 1407 H 1382 H ALT (21 - 72 U/L) 613 H 602 H Albumin (3.5 - 5.0 g/dL) 2.2 L 2.2 L TSH (0.270 - 4.200 uIU/mL) 0.043 L Miscellaneous Phlebotomy Draw Site RIGHT RADIAL 10/12 10/12 10/12 1302 1302 1044 Chemistry Lactic Acid (0.7 - 2.1 mmol/L) 6.8 H Urines Urinalysis LIGHT H Urine Color (YEL,AMB,STR) RESHMA Urine Clarity (CLEAR) CLDY H Urine pH (5.0 - 8.0) 6.5 Ur Specific [place] (1.001 - 1.035) 1.020 Urine Protein (NEG,<30 MG/DL) 100 H Urine Ketones (NEG) NEG Urine Nitrite (NEG) POS H Urine Bilirubin (NEG) POS@ICTO H Urine Urobilinogen (0.1 - 1.0 EU/dl) 4.0 H Ur Leukocyte Esterase (NEG) MOD H Ur Microscopic SEDIMENT EXAMINED Urine RBC (0 - 5 /HPF) 15-25 H Urine WBC (0 - 2 /HPF) 50-75 H Ur Epithelial Cells (NONE,FEW) RARE Urine Crystals 1+ CA OX H Urine Bacteria (NEG/NONE) PACKD H Hyaline Casts (0/LPF) RARE H Granular Casts (NONE /LPF) RARE H Urine Mucus (FEW,NONE) PACKD H Micro UA Comment Urine Hemoglobin (NEG) MOD H Ur Random Creatinine (mg/dL) 96.1 U Random Total Protein (0 - 12 mg/dL) 111.3 H Protein/Creatinin Ratio (< 0.2) 1.10 H Urine Glucose (N MG/DL) NEG 10/12 10/12 1044 0600 Chemistry Sodium (137 - 145 mmol/L) 156 *H Potassium (3.5 - 5.1 mmol/L) 5.9 H Chloride (98 - 107 mmol/L) 118 H Carbon Dioxide (22 - 30 mmol/L) 16 L Anion Gap (5 - 16) 22 H BUN (9 - 20 mg/dL) 119 *H Creatinine (0.7 - 1.2 mg/dL) 3.8 H Estimated GFR (>60 ml/min) 16 L BUN/Creatinine Ratio (7 - 25 %) 31.3 H Glucose (65 - 99 mg/dL) 139 H Calcium (8.4 - 10.2 mg/dL) 9.5 Total Bilirubin (0.2 - 1.3 mg/dL) 7.5 H AST (17 - 59 U/L) 1115 H ALT (21 - 72 U/L) 587 H Alkaline Phosphatase (< 127 U/L) 2282 H Total Protein (6.3 - 8.2 g/dL) 5.9 L Albumin (3.5 - 5.0 g/dL) 2.5 L Globulin (1.9 - 4.2 gm/dL) 3.4 Albumin/Globulin Ratio (1.1 - 2.2 %) 0.7 L Hematology CBC w Diff MAN DIFF ORDERED WBC (4.8 - 10.8 /CUMM) 29.9 H RBC (4.70 - 6.10 /CUMM) 3.93 L Hgb (14.0 - 18.0 G/DL) 11.5 L Hct (42 - 52 %) 36.4 L MCV (80.0 - 94.0 FL) 92.6 MCH (27.0 - 31.0 PG) 29.1 RDW (11.5 - 14.5 %) 16.7 H Plt Count (130 - 400 /CUMM) 296 MPV (7.4 - 10.4 FL) 9.5 Segmented Neutrophils (42.2 - 75.2 %) 88 H Band Neutrophils (0.0 - 5.0 %) 6 H Monocytes (1.7 - 9.3 %) 5 Myelocytes (0 - 0 %) 1 H Nucleated RBCs (0.0 - 0.0 /100WBC) 3 H Platelet Estimate (ADEQUATE) ADEQUATE Hypochromic-Microcytic 1+ Anisocytosis 1+ PUBS MCHC (33.0 - 37.0 G/DL) 31.5 L Urines Ur Random Creatinine (mg/dL) 95.0 Ur Random Sodium (30 - 90 mmol/L) 16 L Ur Random Potassium (mmol/L) 67.6 Fraction Sodium Excret (<1% %) < 1.0 Imaging/Other Studies: CT abdomen/pelivs 10/12/2016: Multiple well-defined hypodense liver lesions suggestive of metastatic disease with mild enlargement. On the previous exam, there was diffuse hepatic steatosis which appears unchanged. The lesions were not seen on old study. Status post cystectomy with diverting ureterostomy into an ileal conduit extending to the right lower quadrant as ileostomy. No hydronephrosis seen in the kidneys. Bilateral renal lesions and moderate bilateral perinephric stranding is stable. Small bilateral pulmonary nodules. The left inferior major fissure nodule is new. Right lower lobe 4 mm nodule has grown to [address] chest 10/12/2016: 1. No consolidating pneumonia. 2. Extensive metastatic disease of the liver. 3. Presumed pathologic fracture of the right clavicle Assessment/Plan Assessment: Mr. Hyde is a 76-year-old male with metastatic bladder cancer to the liver status post recent gemcitabine/cisplatin for 2 cycles and atezolizumab for 1 cycle and palliative radiation to the sacrum who presents with weakness. He was noted to have acute renal failure, acute hepatic failure, and hypotension concerning for septic shock. His CT scan is reviewed and noted multiple liver lesions wihtout intrahepatic ductal dilatation. He is currently being treated for septic shock with antibiotics. Bilirubin has improved a little with fluid and antibiotic. Renal function continues to be decreased but stable since yesterday. Given his recent atezolizumab therapy, there is potential risk for infections. He should be continued on antibiotic for now. Autoimmune proceed is also a possibility. He has been on higher dose prednisone (30 mg TID?). Cortisol is normal. TSH is low. After discussion with his primary oncologist, Dr. Claire, prednisone can be held for now. Evaluate for any reversible process with his bilirubin. He does not seem to have any obstructive process in the liver to reverse at the moment. If he get more hypotensive or has worsening symptoms, he should be started on stress dose steroid. He may be a candidate to discuss hospice/palliative evaluation if no reversible etiology. Recommendations: 1. Continue current antibiotic regimen 2. If hypotensive, start stress dose steroid 3. Continue hydration 4. If not significant improve, hospice/palliative discussion may be needed. Dr. Rowe is covering this weekend. Problem List: 1. Septic shock 2. Acute renal failure 3. Acute liver failure Other Findings/Comments: Please call [phone] with any urgent questions. Copies To: RAMAN NEVAREZ,MISTY Bearden JR Consult Acknowledgment - Thank you for your consult request.
--- NOTE | 2016-10-13 11:13 | PN- Nephrology ---
Assessment/Plan Assessment: 1. Acute kidney injury. His urine output seems to be okay. He does not have an indwelling [place] in his [place] pouch. Potassium will be repeated. 2. Pain likely due to metastatic disease. 3. 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 He had a pelvic lymph node biopsy in June of this past year which was likewise positive. 4. Metastatic disease to the liver. In one sense, one is relieved to see that he arrived hypotensive and responded to fluids. The other more frightening possibility is whether or not his acute kidney injury could represent a development of hepatorenal syndrome. 5. Hypernatremia. Would calculated free water deficit and give half of that the first 24 hours. By my calculations his free water deficit is 5.6 L. This would translate into 120 mL per hour of D5 W 6. Hyperkalemia. Please restrict potassium in the food. He did receive Kayexalate. Suggestion: 1. As noted above calculate free water deficit and give half over 24 hours 2. Awaiting oncology input, however the house officers spoke with his outpatient oncologist and apparently consideration was being given to offering hospice care to the patient by his oncologist. He had received only 1 cycle of chemotherapy before being changed to tecentriq.( atezolamib). It seems his disease is not responding. If that is the case hospice care would be appropriate. Even acutely I do not think dialysis would be the appropriate therapy to offer to this plan. In speaking with his , it is not clear to me that she grasps the severity of his current situation. Subjective Subjective: Patient is seen with his visiting. He does not appear as alert as yesterday. Objective Vital Signs and I&Os Vital Signs Date Time Temp Pulse Resp B/P Pulse O2 O2 Flow FiO2 Ox Delivery Rate 10/13 0400 94 Room Air 10/13 0000 98.4 105 18 100/50 95 Room Air 10/13 0000 95 Room Air 10/13 1999 95 Room Air 10/13 1999 97.0 105 25 120/60 95 Room Air 10/12 1900 97.0 104 22 112/64 10/12 1711 97.2 103 18 103/55 95 Room Air 10/12 1707 97.0 100 20 117/59 10/12 1612 98.6 101 18 112/62 95 Room Air 10/12 1452 98.6 101 18 100/56 98 Room Air 10/12 1324 103 20 100/56 96 Room Air 10/12 1217 92 18 90/55 94 Room Air 10/12 1159 98.8 106 18 87/50 95 Room Air 10/12 1149 110 22 74/42 93 Intake & Output 10/13 1600 10/13 0400 10/12 1600 10/12 0400 10/11 1600 10/11 0400 Intake Total 2046 250 200 Output Total 250 100 Balance 1797 150 200 Intake, IV 2046 250 200 Intake, Oral 0 0 Number 0 0 Bowel Movements Output, Urine 250 100 Patient 171 lb 171 lb 169 lb Weight Physical Exam: General Appearance: cachetic Head: atraumatic, normal appearance Eyes: PERRL, EOMI, other (scleral icterus). Ears, Nose, Throat: hearing grossly normal, dry mucus membranes Neck: normal inspection, supple, trachea mid line Respiratory: normal breath sounds, chest non-tender Cardiovascular: regular rate/rhythm Gastrointestinal: normal bowel sounds, soft, no organomegaly, tender RLQ Neurologic/Psych: no motor/sensory deficits, awake, alert however seems less alert than yesterday Skin: intact, rash, dry , losing subq tissue, poor turgor Current Medications: Current Medications Sig/Marisela Start time Last Medication Dose Route Stop Time Status Admin Acetaminophen 325 MG Q4P PRN 10/12 204 AC PO Calcium Gluconate 1 GM ONCE ONE 10/13 06 DC 10/13 Sodium Chloride 100 ML IV 10/13 0729 0630 Calcium Gluconate 1 GM ONCE ONE 10/12 2315 DC 10/13 Sodium Chloride 100 ML IV 10/13 0014 0108 Ceftriaxone Sodium 2,000 MG DAILY 10/13 1000 AC 10/13 IV 1021 Ceftriaxone Sodium 0 .STK-MED ONE 10/12 1152 DC .ROUTE Ceftriaxone Sodium 2,000 MG ONCE ONE 10/12 1115 DC 10/12 IV 10/12 1116 1155 Dextrose 25 GM ONCE ONE 10/13 0630 DC 10/13 IV 10/13 0631 0651 Dextrose/Water 500 ML BOLUS ONE 10/13 1030 AC 10/13 IV 10/13 1129 1021 Heparin Sodium 5,000 UNIT Q8 10/12 2200 AC 10/13 (Porcine) SC 0646 Hydrocortisone 50 MG ONCE ONE 10/13 0130 DC 10/13 Sodium Succinate IV 10/13 0131 0205 Insulin Human Regular 10 UNITS ONCE ONE 10/13 0630 DC IV 10/13 0631 Insulin Human Regular 10 UNITS ONCE ONE 10/13 0630 DC 10/13 IV 10/13 0631 0652 Lactated Ringer's 1,000 ML ONCE ONE 10/13 0800 CAN IV 10/13 1559 Lactated Ringer's 1,000 ML ONCE ONE 10/12 2045 DC 10/12 IV 10/13 0444 2045 Lactated Ringer's 1,000 ML ONCE ONE 10/12 1700 DC 10/12 IV 10/12 2339 1704 Metronidazole 500 MG IQ8 10/13 0000 AC 10/13 N/A 1 UNIT IV 1020 Morphine Sulfate 0.5 MG Q6-PRN PRN 10/12 2315 AC IV Morphine Sulfate 1 MG Q6-PRN PRN 10/12 2045 DC 10/12 IV 2046 Prednisone 20 MG TID 10/13 0021 DC PO Prednisone 30 MG TID 10/12 2318 DC PO Senna 187 MG AT BEDTIME 10/13 2200 AC PO Sodium Chloride 1,000 ML Q8H 10/13 1030 AC 10/13 IV 1022 Sodium Chloride 1,000 ML Q10H 10/13 0815 DC 10/13 IV 0825 Sodium Chloride 1,000 ML BOLUS ONE 10/12 2315 DC 10/12 IV 10/13 0014 2327 Sodium Chloride 1,000 ML ONCE ONE 10/12 1500 DC 10/12 IV 10/12 2139 1508 Sodium Chloride 1,000 ML BOLUS ONE 10/12 1200 DC 10/12 IV 10/12 1259 1155 Sodium Chloride 1,000 ML BOLUS ONE 10/12 1100 DC 10/12 IV 10/12 1159 1105 Sodium Chloride 1,000 ML BOLUS ONE 10/12 1100 DC 10/12 IV 10/12 1159 1105 Sodium Polystyrene 60 ML ONCE ONE 10/13 0800 DC Sulfonate PO 10/13 0801 Sodium Polystyrene 60 ML ONCE ONE 10/13 0630 DC Sulfonate PO 10/13 0631 Tramadol HCl 0 .STK-MED ONE 10/12 1506 DC PO Tramadol HCl 50 MG ONCE ONE 10/12 1500 DC 10/12 PO 10/12 1501 1508 Results Pertinent Lab Results: Laboratory Tests 10/13 10/13 10/13 1006 0345 0205 Chemistry Sodium (137 - 145 mmol/L) Pending 157 *H Potassium (3.5 - 5.1 mmol/L) Pending 6.2 *H Chloride (98 - 107 mmol/L) Pending 124 H Carbon Dioxide (22 - 30 mmol/L) Pending 16 L Anion Gap (5 - 16) Pending 17 H BUN (9 - 20 mg/dL) Pending 121 *H Creatinine (0.7 - 1.2 mg/dL) Pending 3.5 H Estimated GFR (>60 ml/min) 17 L Glucose (65 - 99 mg/dL) Pending 87 Lactic Acid (0.7 - 2.1 mmol/L) 3.3 H Cancelled Calcium (8.4 - 10.2 mg/dL) Pending 8.4 Phosphorus (2.5 - 4.5 mg/dL) Pending 6.3 H Magnesium (1.6 - 2.3 mg/dL) Pending 2.8 H Total Bilirubin (0.2 - 1.3 mg/dL) Pending 6.6 H AST (17 - 59 U/L) Pending 1555 H ALT (21 - 72 U/L) Pending 591 H Albumin (3.5 - 5.0 g/dL) Pending 2.0 L Cortisol AM Sample (4.46 - 22.7 ug/dL) > 61.6 H Hematology CBC w Diff MAN DIFF ORDERED WBC (4.8 - 10.8 /CUMM) 21.4 H RBC (4.70 - 6.10 /CUMM) 3.63 L Hgb (14.0 - 18.0 G/DL) 10.8 L Hct (42 - 52 %) 34.0 L MCV (80.0 - 94.0 FL) 93.7 MCH (27.0 - 31.0 PG) 29.6 RDW (11.5 - 14.5 %) 16.8 H Plt Count (130 - 400 /CUMM) 226 MPV (7.4 - 10.4 FL) 9.8 Segmented Neutrophils (42.2 - 75.2 %) 91 H Band Neutrophils (0.0 - 5.0 %) 4 Lymphocytes (20.5 - 51.1 %) 1 L Monocytes (1.7 - 9.3 %) 3 Metamyelocytes (0.0 - 1.0 %) 1 Nucleated RBCs (0.0 - 0.0 /100WBC) 2 H Platelet Estimate (ADEQUATE) ADEQUATE Polychromasia 1+ Hypochromic-Microcytic 1+ Poikilocytosis 1+ Ovalocytes 1+ PUBS MCHC (33.0 - 37.0 G/DL) 31.6 L Other Body Source Fld Total RBCs Counted (%) 100 10/13 10/12 10/12 10/12 0035 2049 2049 185 Blood Gas pH (7.35 - 7.45 PH) 7.38 pCO2 (35 - 45 TORR) 24 L pO2 (80 - 100 TORR) 78 L HCO3 (21 - 28 MEQ/L) 14 L ABG O2 Sat (Measured) (>96.0 %) 94.0 L P-50 (Temp Corrected) N Carboxyhemoglobin (1.5 - 5.0 %) 0.3 L O2 Concentration % R/A Temperature (97.0 - 100.0 FARH) 97.2 Chemistry Sodium (137 - 145 mmol/L) 155 H 154 H Potassium (3.5 - 5.1 mmol/L) 4.9 6.0 *H Chloride (98 - 107 mmol/L) 127 H 119 H Carbon Dioxide (22 - 30 mmol/L) 14 L 17 L Anion Gap (5 - 16) 14 19 H BUN (9 - 20 mg/dL) 102 *H 120 *H Creatinine (0.7 - 1.2 mg/dL) 2.9 H 3.6 H Estimated GFR (>60 ml/min) 21 L 17 L Glucose (65 - 99 mg/dL) 91 131 H Lactic Acid (0.7 - 2.1 mmol/L) 3.1 H 4.1 H Uric Acid (3.5 - 8.5 mg/dL) Pending Calcium (8.4 - 10.2 mg/dL) 6.9 L 8.7 Phosphorus (2.5 - 4.5 mg/dL) 5.1 H 6.8 H Magnesium (1.6 - 2.3 mg/dL) 2.4 H 3.0 H Total Bilirubin (0.2 - 1.3 mg/dL) 5.2 H 7.0 H AST (17 - 59 U/L) 1156 H 1407 H ALT (21 - 72 U/L) 475 H 613 H Albumin (3.5 - 5.0 g/dL) 1.6 L 2.2 L TSH (0.270 - 4.200 uIU/mL) 0.043 L Miscellaneous Phlebotomy Draw Site RIGHT RADIAL 10/12 10/12 10/12 1706 1523 1302 Chemistry Sodium (137 - 145 mmol/L) 154 H Potassium (3.5 - 5.1 mmol/L) 5.8 H Chloride (98 - 107 mmol/L) 120 H Carbon Dioxide (22 - 30 mmol/L) 15 L Anion Gap (5 - 16) 19 H BUN (9 - 20 mg/dL) 119 *H Creatinine (0.7 - 1.2 mg/dL) 3.4 H Estimated GFR (>60 ml/min) 18 L Glucose (65 - 99 mg/dL) 166 H Lactic Acid (0.7 - 2.1 mmol/L) 4.3 H 4.1 H Calcium (8.4 - 10.2 mg/dL) 8.7 Phosphorus (2.5 - 4.5 mg/dL) 6.3 H Magnesium (1.6 - 2.3 mg/dL) 2.9 H Total Bilirubin (0.2 - 1.3 mg/dL) 6.9 H AST (17 - 59 U/L) 1382 H ALT (21 - 72 U/L) 602 H Albumin (3.5 - 5.0 g/dL) 2.2 L Urines Ur Random Creatinine (mg/dL) 96.1 U Random Total Protein (0 - 12 mg/dL) 111.3 H Protein/Creatinin Ratio (< 0.2) 1.10 H 10/12 10/12 1302 1044 Chemistry Lactic Acid (0.7 - 2.1 mmol/L) 6.8 H Urines Urinalysis LIGHT H Urine Color (YEL,AMB,STR) RESHMA Urine Clarity (CLEAR) CLDY H Urine pH (5.0 - 8.0) 6.5 Ur Specific [place] (1.001 - 1.035) 1.020 Urine Protein (NEG,<30 MG/DL) 100 H Urine Ketones (NEG) NEG Urine Nitrite (NEG) POS H Urine Bilirubin (NEG) POS@ICTO H Urine Urobilinogen (0.1 - 1.0 EU/dl) 4.0 H Ur Leukocyte Esterase (NEG) MOD H Ur Microscopic SEDIMENT EXAMINED Urine RBC (0 - 5 /HPF) 15-25 H Urine WBC (0 - 2 /HPF) 50-75 H Ur Epithelial Cells (NONE,FEW) RARE Urine Crystals 1+ CA OX H Urine Bacteria (NEG/NONE) PACKD H Hyaline Casts (0/LPF) RARE H Granular Casts (NONE /LPF) RARE H Urine Mucus (FEW,NONE) PACKD H Micro UA Comment Urine Hemoglobin (NEG) MOD H Urine Glucose (N MG/DL) NEG 10/12 10/12 10/12 1044 1041 0600 Chemistry Sodium (137 - 145 mmol/L) 156 *H Potassium (3.5 - 5.1 mmol/L) 5.9 H Chloride (98 - 107 mmol/L) 118 H Carbon Dioxide (22 - 30 mmol/L) 16 L Anion Gap (5 - 16) 22 H BUN (9 - 20 mg/dL) 119 *H Creatinine (0.7 - 1.2 mg/dL) 3.8 H Estimated GFR (>60 ml/min) 16 L BUN/Creatinine Ratio (7 - 25 %) 31.3 H Glucose (65 - 99 mg/dL) 139 H Calcium (8.4 - 10.2 mg/dL) 9.5 Total Bilirubin (0.2 - 1.3 mg/dL) 7.5 H AST (17 - 59 U/L) 1115 H ALT (21 - 72 U/L) 587 H Alkaline Phosphatase (< 127 U/L) 2282 H Total Protein (6.3 - 8.2 g/dL) 5.9 L Albumin (3.5 - 5.0 g/dL) 2.5 L Globulin (1.9 - 4.2 gm/dL) 3.4 Albumin/Globulin Ratio (1.1 - 2.2 %) 0.7 L Hematology CBC w Diff MAN DIFF ORDERED WBC (4.8 - 10.8 /CUMM) 29.9 H RBC (4.70 - 6.10 /CUMM) 3.93 L Hgb (14.0 - 18.0 G/DL) 11.5 L Hct (42 - 52 %) 36.4 L MCV (80.0 - 94.0 FL) 92.6 MCH (27.0 - 31.0 PG) 29.1 RDW (11.5 - 14.5 %) 16.7 H Plt Count (130 - 400 /CUMM) 296 MPV (7.4 - 10.4 FL) 9.5 Segmented Neutrophils (42.2 - 75.2 %) 88 H Band Neutrophils (0.0 - 5.0 %) 6 H Monocytes (1.7 - 9.3 %) 5 Myelocytes (0 - 0 %) 1 H Nucleated RBCs (0.0 - 0.0 /100WBC) 3 H Platelet Estimate (ADEQUATE) ADEQUATE Hypochromic-Microcytic 1+ Anisocytosis 1+ PUBS MCHC (33.0 - 37.0 G/DL) 31.5 L Miscellaneous Ref Lab Test Result Pending Ref Lab Test Result Pending Urines Ur Random Creatinine (mg/dL) 95.0 Ur Random Sodium (30 - 90 mmol/L) 16 L Ur Random Potassium (mmol/L) 67.6 Fraction Sodium Excret (<1% %) < 1.0
--- NOTE | 2016-10-13 13:56 | PN- Resident CRCU ---
Subjective HPI/CRCU Issues: Patient seen and examined this morning. He was lying in bed in no acute distress. Continues to be forgetful and confused at times. Afebrile, blood pressure has been towards the lower side despite of being on aggressive fluid management. Due to her abdominal pain and tenderness. Denies any nausea, vomiting. Remains on straight cath protocol through [facility] stoma. His prognosis deemed for, oncologist to see the patient to discuss further goals of care today. Objective Vital Signs & I&O Last 8 Hrs of Vitals and I&O: Intake & Output 10/13 1600 Intake Total 1320 Output Total 600 Balance 720 Intake, IV 1320 Intake, Oral 0 Output, Urine 600 Exam General Appearance: no apparent distress, cachetic, lethargic Head: atraumatic Neck: normal inspection Respiratory: b/l lowe lung zones coarse breath sounds Cardiovascular: regular rate/rhythm Gastrointestinal: normal bowel sounds, tender in RUQ Extremities: normal inspection, no edema Current Medications: Current Medications Sig/Marisela Start time Last Medication Dose Route Stop Time Status Admin Acetaminophen 325 MG Q4P PRN 10/12 2044 AC PO Calcium Gluconate 1 GM ONCE ONE 10/13 06 DC 10/13 Sodium Chloride 100 ML IV 10/13 0729 0630 Calcium Gluconate 1 GM ONCE ONE 10/12 2315 DC 10/13 Sodium Chloride 100 ML IV 10/13 0014 0108 Ceftriaxone Sodium 2,000 MG DAILY 10/13 1000 AC 10/13 IV 1021 Dextrose 25 GM ONCE ONE 10/13 0630 DC 10/13 IV 10/13 0631 0651 Dextrose/Water 500 ML BOLUS ONE 10/13 1030 DC 10/13 IV 10/13 1129 1021 Heparin Sodium 5,000 UNIT Q8 10/12 2200 AC 10/13 (Porcine) SC 0646 Hydrocortisone 50 MG ONCE ONE 10/13 0130 DC 10/13 Sodium Succinate IV 10/13 0131 0205 Insulin Human Regular 10 UNITS ONCE ONE 10/13 0630 DC IV 10/13 0631 Insulin Human Regular 10 UNITS ONCE ONE 10/13 0630 DC 10/13 IV 10/13 0631 0652 Lactated Ringer's 1,000 ML ONCE ONE 10/13 0800 CAN IV 10/13 1559 Lactated Ringer's 1,000 ML ONCE ONE 10/12 2045 DC 10/12 IV 10/13 0444 2045 Lactated Ringer's 1,000 ML ONCE ONE 10/12 1700 DC 10/12 IV 10/12 2339 1704 Metronidazole 500 MG IQ8 10/13 0000 AC 10/13 N/A 1 UNIT IV 1020 Morphine Sulfate 0.5 MG Q6-PRN PRN 10/12 2315 AC IV Morphine Sulfate 1 MG Q6-PRN PRN 10/12 2045 DC 10/12 IV 2046 Prednisone 20 MG TID 10/13 0021 DC PO Prednisone 30 MG TID 10/12 2318 DC PO Senna 187 MG AT BEDTIME 10/13 2200 AC PO Sodium Chloride 1,000 ML Q8H 10/13 1030 AC 10/13 IV 1022 Sodium Chloride 1,000 ML Q10H 10/13 0815 DC 10/13 IV 0825 Sodium Chloride 1,000 ML BOLUS ONE 10/12 2315 DC 10/12 IV 10/13 0014 2327 Sodium Chloride 1,000 ML ONCE ONE 10/12 1500 DC 10/12 IV 10/12 2139 1508 Sodium Polystyrene 60 ML ONCE ONE 10/13 0800 DC Sulfonate PO 10/13 0801 Sodium Polystyrene 60 ML ONCE ONE 10/13 0630 DC Sulfonate PO 10/13 0631 Tramadol HCl 0 .STK-MED ONE 10/12 1506 DC PO Tramadol HCl 50 MG ONCE ONE 10/12 1500 DC 10/12 PO 10/12 1501 1508 Impression/Plan Impression/Problem List Impression: This is a 76-year-old male with past medical history of hypertension, hyperlipidemia, urothelial bladder cancer stage IV status post bladder resection and placement of [place] pouch, currently under palliative radiotherapy, prostate cancer, liver cancer presents with weakness and abdominal pain. Vitals upon presentation temperature 97.3, pulse 114, blood pressure 82/55, pulse ox 94 on room air Pertinent labs wBC 29.9 , H&H 11.5 and 36.4, platelets 296, sodium 156, potassium 5.9, creatinine 2.8, BUN 1119, total bilirubin 7.5, AST 1115 home ALT 587, alkaline phosphatase 2282, lactic acid 6.8, urinalysis leukoesterase positive and nitrate positive, WBC 50-75, Abdominopelvic CT showed: IMPRESSION: Multiple well-defined hypodense liver lesions suggestive of metastatic disease with mild enlargement. On the previous exam, there was diffuse hepatic steatosis which appears unchanged. The lesions were not seen on old study. Status post cystectomy with diverting ureterostomy into an ileal conduit extending to the right lower quadrant as ileostomy. No hydronephrosis seen in the kidneys. Bilateral renal lesions and moderate bilateral perinephric stranding is stable. Small bilateral pulmonary nodules. The left inferior major fissure nodule is new. Right lower lobe 4 mm nodule has grown to 7 mm nodule size. Recommend CT chest correlation. We'll admit the patient to ICU and monitor for the following conditions. Sepsis likely urological in origin: Insetting of fever, high white count, hypotension. IV hydration with lactated Ringer's at 150 mL per hour. Will trend lactic acid initial 6.8>> 4.1>>3.4 Patient started on Ceftriaxone, will follow blood and urine cultures Abdominal pain/transaminitis: AST 1115 home ALT 587, alkaline phosphatase 2282 upon presentation, patient states that the abdominal pain has been going on for some time now, he is currently getting palliative radiation for stage IV bladder cancer which has metastasis as mentioned in the CT scan report above. Acute kidney injury: Creatinine normal upon presentation to 3.8 from baseline of 1.4-3 days ago, likely secondary to dehydration, CT scan has ruled out any obstructive uropathy or abscess. Nephrology has been consulted, will follow-up recommendations. Hypernatremia: Sodium level on presentation 156, likely secondary to dehydration. Patient received normal saline in ER, ICU bundle has been repeated the follow-up. Levels today 157, patient currently on half normal saline at 125 per hour. Hyperkalemia: Level upon presentation 5.8>>6.2>>5.5, will monitor closely. History of bladder cancer status post [place] pouch: Patient currently receiving palliative radiotherapy and chemotherapy for stage IV bladder cancer. Patient was seen by oncology, it was deemed that patient prognosis remains poor, attending physician, oncologist had a detailed discussion with patient's family diagnosis of care. Patient family understand that prognosis at this point remains poor and want to pursue with hospice, case management has been notified hospice consult will be obtained. DVT prophylaxis: Heparin subcutaneous Patient is full code. Problem List: 1. Metastatic carcinoma of the bladder 2. Sepsis 3. Acute renal failure Pain Ratin Pain Location: Abdomen Pain Goal: Remain pain free Tomorrow's Labs & Rationales: None Plan DVT/Prophylaxis: pharmacological
--- NOTE | 2016-10-14 17:24 | Discharge Summary ---
Visit Information Visit Dates Admission Date: 10/12/16 Discharge Date: 10/13/16 Hospital Course Course Attending Physician: Ant GARNER MD Primary Care Physician: NESSA ALVAREZ DO Consulting Request: Consulting Specialty: Critical Care Hospital Course: This is a 76-year-old male with past medical history of hypertension, hyperlipidemia, urothelial bladder cancer stage IV status post bladder resection and placement of Heena pouch, currently under palliative radiotherapy, prostate cancer, liver cancer presented with weakness and abdominal pain. He was tachycardic, hypertensive upon presentation with a recently the site count, elevated lactic acid, and he was suggestive of urine tract infection, he was admitted to ICU for management of sepsis likely secondary to urological in origin, he was started on ceftriaxone long with aggressive hydration. Patient was seen by oncology, it was deemed that patient prognosis remains poor, attending physician, oncologist had a detailed discussion with patient's family regarding goals of care. Patient's family understand that prognosis at this point remains poor and want to pursue with hospice, case management was notified , and official hospice consult was obtained. Allergies: Coded Allergies: NO KNOWN ALLERGIES (08/14/16) Disposition Summary Disposition Principal Diagnosis: Sepsis of urologic origin. Additional Diagnosis: Acute kidney injury. Transaminitis likely secondary to metastatic liver disease and septic shock. Hypernatremia secondary to dehydration. Hyperkalemia. Stage IV bladder cancer Discharge Disposition: hospice - medical facilit Discharge Instructions General Discharge Information Code Status: Hospice Patient's Diet: As tolerated Patient's Activity: As tolerated Follow-Up Instructions/Appts: Hospice patient Copies To: Ant GARNER MD
== END 2016-10-13 15:19 | disposition hospice, home (50) | DRG 871 ==
LOC: CANRESERV → ENRESERVDT → ENRESERV → ENRESERVTM → ERH 10:23 → CRI 12:25 → ERHI 12:25 → CRI 19:39 → 2NA 10-13 15:15
PROVIDERS: Emergency Medicine; Student in an Organized Health Care Education/Training Program; ADMIT Internal Medicine Pulmonary Disease
DX: A41.9 Sepsis, unspecified organism (principal); R65.21 Severe sepsis with septic shock; N17.9 Acute kidney failure, unspecified; E87.0 Hyperosmolality and hypernatremia; Z51.5 Encounter for palliative care; R64 Cachexia; E87.2 Acidosis; C78.7 Secondary malignant neoplasm of liver and intrahepatic bile duct; C79.51 Secondary malignant neoplasm of bone; E87.5 Hyperkalemia; C67.9 Malignant neoplasm of bladder, unspecified; I10 Essential (primary) hypertension; E78.5 Hyperlipidemia, unspecified; F17.200 Nicotine dependence, unspecified, uncomplicated; Z68.25 Body mass index [BMI] 25.0-25.9, adult; Z85.46 Personal history of malignant neoplasm of prostate
CPT/HCPCS: 82310; 83735; 84133; 84300; CCU; 36415; 74176; 81001; 82436; 82570; 87040; 87086; 93005; 93010; 96374; 99291; J0610; J0696; J1644; J1720; J1815; J2270; J7120

== ENCOUNTER 2016-10-13 15:19 | Inpatient (IN) | payer OTHER ==
[~2016-10-13 15:19] MED LIST changes: +SENOKOT8.6 M2 PO; +TRAMADOL HCL50 M1 PO
[2016-10-13 15:45] VITALS: BP 94/58
--- NOTE | 2016-10-13 16:32 | History & Physical ---
See Addendum General Information and HPI Chief Complaint: Admit to hospice Source of Information: patient, family, old records Exam Limitations: clinical condition, confusion Associated Symptoms: right-sided abdominal pain History of Present Illness: is a 76 yo man with PMHx. significant for hypertension, hyperlipidemia, prostatic cancer s/p radiotherapy in 2001, bladder cancer status post [place] pouch placement with metastasis to the liver status post recent gemcitabine/ cisplatin for 2 cycles and atezolizumab for 1 cycle and palliative radiation to the sacrum who presents with weakness and brief loss of consciousness. He presented to [facility] at 10/12/2016 found to be septic 2/2 urological origin, He has right upper quadrant pain, elevated bilirubin and transaminitis secondary to diffuse liver metastases, acute kidney injury, worsening despite volume repletion. and hypotension concerning for septic shock. His CT scan noted multiple liver lesions without intrahepatic ductal dilatation. He is currently being treated for septic shock with antibiotics. Bilirubin has improved a little with fluid and antibiotic. Renal function continues to be decreased but stable since yesterday. After discussion with his oncologist and Dr. Slade and in view of his poor prognosis, pt and family have made decision to pursue hospice care. Pt states morphine (1mg IV) has helped with pain "a little". 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 Exam & Diagnostic Data Last 24 Hrs of Vital Signs/I&O T-97.9; HR-96; RR-20; BP-80/30 Physical Exam General Appearance Mild Distress, lethargic, ill-appearing HEENT Atraumatic, dry mucous membranes Cardiovascular Regular Rate, Normal S1, Normal S2 Lungs Clear to Auscultation, shallow, unlabored Abdomen Soft, [place] pouch RLQ, RUQ and RLQ tenderness on palp. Neurological lethargic, able to follow commands, confused at times, speech is thick Extremities No Cyanosis, No Edema Last 24 Hrs of Labs/[place]: CBC with WBC 21.4, Hgb 10.8, HCT 34. chemistries with sodium 157, potassium 6.2, BUN 121, creatinine 3.5,phosphorus 6.3, magnesium 2.8, total bili 6.6, AST 1555, ALT 591. Urinalysis is cloudy, positive nitrite, moderate leukocyte esterase, WBC 50-75, bacteria packed. Diagnostic Data Other Results CT of abdomen and pelvis:IMPRESSION: Multiple well-defined hypodense liver lesions suggestive of metastatic disease with mild enlargement. On the previous exam, there was diffuse hepatic steatosis which appears unchanged. The lesions were not seen on old study. Status post cystectomy with diverting ureterostomy into an ileal conduit extending to the right lower quadrant as ileostomy. No hydronephrosis seen inthe kidneys. Bilateral renal lesions and moderate bilateral perinephric stranding is stable. Small bilateral pulmonary nodules. The left inferior major fissure nodule is new. Right lower lobe 4 mm nodule has grown to 7 mm nodule size. Chest CT:IMPRESSION: 1. No consolidating pneumonia. 2. Extensive metastatic disease of the liver. 3. Presumed pathologic fracture of the right clavicle. Assessment/Plan Assessment: Mr. Hyde is a 76-year-old male with metastatic bladder cancer to the liver status post [place] pouch, he received recent gemcitabine/cisplatin for 2 cycles and atezolizumab for 1 cycle and palliative radiation to the sacrum who presents with weakness. CT- abdomen which showed multiple well-defined hypodense liver lesions suggestive of metastatic disease with mild enlargement. He was noted to have acute renal failure, acute hepatic failure, and hypotension concerning for septic shock. Patient and family has been seen by oncologist service, nephrology service who both recommend hospice as his disease seems not responding, patient prognosis remains poor. Both attending physician and oncologist had a detailed discussion with the family and patient, who want to pursue with hospice. Plan: Admit the patient to hospice Morphine 2 mg IV every 8 hours scheduled and 2 mg IV every hour when necessary pain/dyspnea Ativan 1 mg IV every 4 hours when necessary anxiety. Scopolamine patch every 72 hours when necessary for congestion, as well as glycopyrrolate 200mcg IV every 4 hrs when necessary. dulcolax 10mg QD PRN constipation. Straight catheterization of melania pouch every 5-6 hours ATC.
--- NOTE | 2016-10-13 20:36 | NUR ---
PT ARRIVED TO FLOOR APPROX 1600. HE IS A&OX3, C/O PAIN 03/08 IN ABD. CAIO LEHMAN APRN, NOTIFIED OF PTS ARRIVAL AND IS NOW ENTERING ORDERS. PTS AT BEDSIDE. PT HAS MELANIA POUCH, S/P BLADDER CA AND BLADDER REMOVAL. PT DEMONSTRATED HOW TO CATH THE PTS STOMA FOR URINE. SHE WAS ABLE TO TEACH THIS NURSE, ITZ QUINTERO, AND TERESA. PT MEDICATED AND NOW APPEARS MORE COMFORTABLE. GIVEN A COMFORT CART AND EMOTIONAL SUPPORT. GAVE REPORT TO ITZ FOR CONTINUITY OF CARE.
--- NOTE | 2016-10-13 23:00 | NUR ---
PT RR 20, NO MOANING AT THIS TIME. MULTIPLE MORPHINE AND ATIVAN PRN GIVEN. AT BEDSIDE. WILL CONTINUE TO MONITOR THIS SHIFT.
--- NOTE | 2016-10-14 01:20 | NUR ---
LAB REPORTED BLOOD CULTURE (+) GRAM NEGATIVE RODS.
--- NOTE | 2016-10-14 04:00 | NUR ---
RR 24, LABORED RESPIRATIONS. ADMINISTERED MORPHINE PRN. COMFORT CARE AND REPOSITIONING PROVIDED. STRAIGHT CATH 200mL. AT BEDSIDE. WILL CONTINUE TO MONITOR THIS SHIFT.
[2016-10-14 06:41] VITALS: BP 90/62
--- NOTE | 2016-10-14 06:54 | NUR ---
PT RECTAL TEMP 102.9, ADMINISTERED TYLENOL [place]. RR 24, SLIGHTLY LABORED RESPIRATIONS. SCHEDULED MORPHINE ADMINISTERED. AT BEDSIDE. COMFORT CARE AND REPOSITIONING PROVIDED. WILL CONTINUE TO MONITOR THIS SHIFT.
--- NOTE | 2016-10-18 16:00 | Discharge Summary ---
Visit Information Visit Dates Admission Date: 10/13/16 Discharge Date: 10/14/16 Hospital Course Course Attending Physician: VINCENT NEVAREZ,TSOHIA Primary Care Physician: NESSA ALVAREZ DO Hospital Course: Mr. 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 Work up revealed lesions in the liver suggestive of metastatic disease, acute renal failure, acute hepatic failure, and hypotension concerning for septic shock. Patient was placed on hospice service per his/family's wishes and he was kept comfortable with morphine and ativan until he passed peacefully. Allergies: Coded Allergies: NO KNOWN ALLERGIES (08/14/16) Disposition Summary Disposition Principal Diagnosis: Bladder cancer with metastasis to the liver Additional Diagnosis: Hypotension Acute renal failure Acute hepatic failure Discharge Disposition: Discharge Instructions General Discharge Information Code Status: Hospice Patient's Diet: N/A Patient's Activity: N/A Follow-Up Instructions/Appts: N/A Copies To: NESSA ALVAREZ DO
== END 2016-10-14 07:43 | disposition expired | DRG 686 ==
LOC: 2NA 15:19
PROVIDERS: ADMIT Hospitalist
DX: C67.9 Malignant neoplasm of bladder, unspecified (principal); K72.00 Acute and subacute hepatic failure without coma; N17.9 Acute kidney failure, unspecified; I95.9 Hypotension, unspecified; C78.7 Secondary malignant neoplasm of liver and intrahepatic bile duct; Z51.5 Encounter for palliative care